=== PATIENT | male | born 1965 | race Caucasian/White ===

== ENCOUNTER 2017-05-25 10:50 | Emergency (ER) | payer OTHER ==
[2017-05-25] MEDS ORDERED: HYDROcodone/APAP 5-325MG 1 EACH TAB PO STA (11:14)
[2017-05-25] MEDS ORDERED: IBUPROFEN 800 MG TAB PO STA (11:15)
[2017-05-25 12:02] VITALS: TEMP 98.2
--- NOTE | 2017-05-25 12:08 | ED ---
General Adult HPI - General Chief complaint: Extremity Problem,Nontraumatic Stated complaint: leg pain Time Seen by Provider: 05/25/17 11:03 Source: patient, RN notes reviewed, old records reviewed Mode of arrival: wheelchair Limitations: no limitations - History of Present Illness Initial comments: This is a 51-year-old male the ER for evaluation. Patient presents today for evaluation of leg pain bilateral lower extremity pain. Patient denies any significant medical history. Takes no medications. Does admit to drinking a few beers last night. Patient was walking home from his bicycle this morning and was having some pain in his legs. He is complaining of still having pain in both legs. Both thighs both calves. Patient states pain is worse when he standing on his legs, no significant nothing seems to make them better, they're not better with rest. 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 No chest pain or shortness of breath. No recent travel history or sick contacts. Severity scale (1-10): 8 - Related Data Home Medications Medication Instructions Recorded Confirmed Cetirizine HCl [Zyrtec] 10 mg PO DAILY 05/25/17 05/25/17 predniSONE See Taper PO DIRECTED 05/25/17 05/25/17 Allergies Allergy/AdvReac Type Severity Reaction Status Date / Time No Known Allergies Allergy Verified 05/25/17 11:21 Review of Systems ROS Statement: Those systems with pertinent positive or pertinent negative responses have been documented in the HPI. ROS Other: All systems not noted in ROS Statement are negative. Past Medical History Past Medical History: No Reported History Additional Past Medical History / Comment(s): wpw History of Any Multi-Drug Resistant Organisms: None Reported Past Surgical History: No Surgical Hx Reported Past Psychological History: No Psychological Hx Reported Smoking Status: Current every day smoker Past Alcohol Use History: Occasional Past Drug Use History: None Reported General Exam Limitations: no limitations General appearance: alert, in no apparent distress Head exam: Present: atraumatic, normocephalic, normal inspection Eye exam: Present: normal appearance, PERRL, EOMI. Absent: scleral icterus, conjunctival injection, periorbital swelling ENT exam: Present: normal exam, mucous membranes moist Neck exam: Present: normal inspection. Absent: tenderness, meningismus, lymphadenopathy Respiratory exam: Present: normal lung sounds bilaterally. Absent: respiratory distress, wheezes, rales, rhonchi, stridor Cardiovascular Exam: Present: regular rate, normal rhythm, normal heart sounds. Absent: systolic murmur, diastolic murmur, rubs, gallop, clicks GI/Abdominal exam: Present: soft, normal bowel sounds. Absent: distended, tenderness, guarding, rebound, rigid Extremities exam: Present: normal inspection, full ROM, normal capillary refill , other (Positive dorsalis pedis and popliteal pulses bilaterally 2+). Absent: tenderness, pedal edema, joint swelling, calf tenderness Back exam: Present: normal inspection Neurological exam: Present: alert, oriented X3, CN II-XII intact Psychiatric exam: Present: normal affect, normal mood Skin exam: Present: warm, dry, intact, normal color. Absent: rash Course Vital Signs 05/25/17 05/25/17 10:54 12:00 Temperature 97.8 F 98.2 F Pulse Rate 93 Pulse Rate [ 67 Right Pulse Oximetery] Respiratory 20 18 Rate Blood Pressure 115/64 Blood Pressure 117/73 [Left Arm] Blood Pressure 136/69 [Left Calf] Blood Pressure 119/71 [Right Arm] Blood Pressure 147/81 [Right Calf] O2 Sat by Pulse 99 97 Oximetry - Reevaluation(s) Reevaluation #1: 05/25/17 12:07 ARASH right arm 119/71 , right calf 147/81 Left arm 117/73 , left 136/69 Medical Decision Making - Medical Decision Making 48 female here for evaluation of leg pain, nonspecific K with no evidence of vascular injury, pain to suggest DVT pain is bilateral, worse with ambulation but not better with rest, no evidence of claudication. Patient just nonspecific leg pain, will discharge home Disposition Clinical Impression: Bilateral leg pain Disposition: HOME SELF-CARE Condition: Good Instructions: Leg Pain (ED) Referrals: Arturo Harris MD [Primary Care Provider] - 1-2 days
[2017-05-25 12:38] VITALS: BP 147/81; PULSE 86; RESP 16
== END 2017-05-25 12:37 | disposition home or self-care (01) ==
LOC: EC 10:50
DX: M79.662 Pain in left lower leg (principal); M79.661 Pain in right lower leg; F17.200 Nicotine dependence, unspecified, uncomplicated; Z79.51 Long term (current) use of inhaled steroids; Z79.899 Other long term (current) drug therapy
CPT/HCPCS: 99284

== ENCOUNTER 2017-08-27 13:49 | Emergency (ER) | payer OTHER ==
[2017-08-27 13:54] VITALS: BP 125/81; PULSE 104; RESP 18; TEMP 97.4
[2017-08-27] MEDS ORDERED: CEPHALEXIN 500 MG CAP PO STA (14:20)
[2017-08-27] MEDS ORDERED: KETOROLAC 30 MG/ML 1 ML VIAL IM STA (14:20)
--- NOTE | 2017-08-27 14:28 | ED ---
Extremity Problem HPI - General Chief complaint: Extremity Problem,Nontraumatic Stated complaint: Ear and Leg Pain Time Seen by Provider: 08/27/17 14:03 Source: patient Mode of arrival: ambulatory Limitations: no limitations - History of Present Illness Initial comments: Patient is a 51-year-old male who presents with a chief complaint of ear pain and leg pain. Patient states that the symptoms have been going on for about 3 days. Patient states that he thinks he was bit by a bug. When asked, the patient states that he does have fleas in his house as he has for animals in the house. Patient states that his ear was the first symptom. He states that 3 days ago is here with swollen and red, but since it has been much improved. Today the patient is most concerned about an area of erythema on his left anterior leg. The patient again states that he thinks he was bit by a bug. Patient does not have any prior history of skin infections. She cannot identify what bug he was bit by. Patient characterizes his pain as burning and pressure. Aggravating factors are standing, there are no alleviating factors. The patient has not tried taking any medications at home. MD Complaint: extremity pain Onset/Timin -: days(s) Location: left History of Same: No Quality: burning Consistency: constant Improves with: nothing Worsens with: weight bearing Associated Symptoms: denies other symptoms - Related Data Home Medications Medication Instructions Recorded Confirmed Cetirizine HCl [Zyrtec] 10 mg PO DAILY 05/25/17 05/25/17 predniSONE See Taper PO DIRECTED 05/25/17 05/25/17 Previous Rx's Medication Instructions Recorded HYDROcodone/APAP 5-325MG [[place] 1 tab PO Q6HR PRN #30 tab 05/25/17 5-325] Cephalexin [Keflex] 500 mg PO Q6HR #27 cap 08/27/17 Allergies Allergy/AdvReac Type Severity Reaction Status Date / Time No Known Allergies Allergy Verified 08/27/17 13:54 Review of Systems ROS Statement: Those systems with pertinent positive or pertinent negative responses have been documented in the HPI. ROS Other: All systems not noted in ROS Statement are negative. Constitutional: Denies: fever, chills Eyes: Denies: vision change ENT: Reports: ear pain (Outter ear) Respiratory: Denies: cough, dyspnea Cardiovascular: Denies: chest pain Endocrine: Denies: fatigue Gastrointestinal: Denies: nausea, vomiting Genitourinary: Denies: dysuria Musculoskeletal: Denies: back pain Skin: Reports: lesions Past Medical History Past Medical History: No Reported History Additional Past Medical History / Comment(s): wpw History of Any Multi-Drug Resistant Organisms: None Reported Past Surgical History: No Surgical Hx Reported Past Psychological History: No Psychological Hx Reported Smoking Status: Current every day smoker Past Alcohol Use History: Occasional Past Drug Use History: Marijuana General Exam Limitations: no limitations General appearance: alert, in no apparent distress Head exam: Present: atraumatic, normocephalic Eye exam: Present: PERRL ENT exam: Present: TM's normal bilaterally, other (Patient has tenderness to palpation of the left pinna) Neck exam: Present: normal inspection Respiratory exam: Present: normal lung sounds bilaterally Cardiovascular Exam: Present: regular rate, normal rhythm, normal heart sounds GI/Abdominal exam: Present: soft. Absent: distended, tenderness Rectal exam: Present: deferred Extremities exam: Present: other (Patient has a 3" x 3" area of erythema and warmth over his left middle tibia. The area is not circumferential. There is no drainage noted) Back exam: Present: normal inspection Neurological exam: Present: alert, oriented X3, CN II-XII intact, normal gait Psychiatric exam: Present: normal affect, normal mood Skin exam: Present: warm, dry, intact, other (Refer to extremity exam for detail of skin lesion.) Course Vital Signs 08/27/17 13:52 Temperature 97.4 F L Pulse Rate 104 H Respiratory 18 Rate Blood Pressure 125/81 O2 Sat by Pulse 98 Oximetry Medical Decision Making - Medical Decision Making Patient presents with a chief complaint of ear pain and cellulitis of the left lower extremity. History and physical examination are consistent with localized cellulitis. Examination of the ears unremarkable though the patient is concerned for having bugs in his house. Etiologies for his leg and ear are likely the same. Patient will benefit from a course of oral antibiotics. She was counseled on the necessity for an security clerk to make sure that there are no bug infestation's in his house. Further he was counseled on getting his pets treated for fleas. I discussed smoking cessation with the patient. At this time, the patient is agreeable to current care plan. I will jan the affected cellulitic area with a marker, the patient was instructed to return to the emergency Department if the area of cellulitis spreads. Patient was encouraged to follow up with primary care in 5 days, or to return to the emergency department if symptoms worsen or change in anyway. At this time, all questions are answered as best my ability. Patient is stable for discharge. Disposition Clinical Impression: Cellulitis, Tobacco abuse counseling Disposition: HOME SELF-CARE Condition: Good Instructions: Cellulitis (ED) Referrals: Arturo Harris MD [Primary Care Provider] - 1-2 days
== END 2017-08-27 14:45 | disposition home or self-care (01) ==
LOC: EC 13:49
DX: L03.116 Cellulitis of left lower limb (principal); H92.02 Otalgia, left ear; Z71.6 Tobacco abuse counseling; F17.200 Nicotine dependence, unspecified, uncomplicated; Z79.899 Other long term (current) drug therapy
CPT/HCPCS: 99283; 96372; J1885

== ENCOUNTER 2021-10-02 04:50 | Emergency (ER) | payer OTHER ==
[2021-10-02 04:57] VITALS: TEMP 97.9
[2021-10-02] MEDS ORDERED: SODIUM CHLORIDE 0.9% 500 ML 500 ML IV STA (05:08)
[2021-10-02 05:31] LABS: Basophils % (A) 1 %; Eosinophils # (A) 0.1 k/uL (0-0.7); Eosinophils % (A) 2 %; HCT 44.9 % (39.0-53.0); HGB 15.3 gm/dL (13.0-17.5); Lymphocytes # (A) 2.3 k/uL (1.0-4.8); Lymphocytes % (A) 30 %; MCH 30.7 pg (25.0-35.0); MCV 90.5 fL (80.0-100.0); Mean Platelet Volume 8.4; Monocytes # (A) 0.3 k/uL (0-1.0); Monocytes % (A) 4 %; Neutrophils # (A) 4.7 k/uL (1.3-7.7); Neutrophils % (A) 62 %; Platelet Count 182 k/uL (150-450); RBC 4.96 m/uL (4.30-5.90); RDW 12.4 % (11.5-15.5); WBC 7.6 k/uL (3.8-10.6)
--- NOTE | 2021-10-02 05:56 | ED ---
Dizziness HPI - General Chief Complaint: Dizziness Stated Complaint: Anxiety Time Seen by Provider: 10/02/21 04:53 Source: patient, RN notes reviewed, old records reviewed Mode of arrival: ambulatory Limitations: no limitations - History of Present Illness Initial Comments: This is a 48-year-old male to the emergency department today. Patient presents today for evaluation of severe dizziness lightheadedness and episodes of near- syncope. Patient states his heart rate currently goes from episodes of being very low episodes of being very high. He knows he has a history of WPW but is not taking medications for a few years. Patient denies any drug or alcohol abuse, no recent nausea vomiting or diarrhea. Patient states aside from the dizziness and palpitations he has no chest pain during these events. No current shortness of breath. MD Complaint: dizziness, lightheadedness -: days(s) Timing: gradual onset Description: lightheadedness, near-syncope History of Same: Yes History of Trauma: No Severity: moderate Improves With: remaining still Worsens With: nothing Associated Symptoms: diaphoresis, shortness of breath (Occasional) - Related Data Previous Rx's Medication Instructions Recorded Cephalexin [Keflex] 500 mg PO Q6HR #27 cap 08/27/17 Allergies Allergy/AdvReac Type Severity Reaction Status Date / Time No Known Allergies Allergy Verified 10/02/21 04:57 Review of Systems ROS Statement: Those systems with pertinent positive or pertinent negative responses have been documented in the HPI. ROS Other: All systems not noted in ROS Statement are negative. Past Medical History Past Medical History: No Reported History Additional Past Medical History / Comment(s): wpw History of Any Multi-Drug Resistant Organisms: None Reported Past Surgical History: No Surgical Hx Reported Past Psychological History: No Psychological Hx Reported Smoking Status: Current every day smoker Past Alcohol Use History: Occasional Past Drug Use History: Marijuana General Exam General appearance: alert, in no apparent distress, anxious Head exam: Present: atraumatic, normocephalic, normal inspection Eye exam: Present: normal appearance, PERRL, EOMI. Absent: scleral icterus, conjunctival injection, periorbital swelling ENT exam: Present: normal exam, mucous membranes moist Neck exam: Present: normal inspection. Absent: tenderness, meningismus, lymphadenopathy Respiratory exam: Present: normal lung sounds bilaterally. Absent: respiratory distress, wheezes, rales, rhonchi, stridor Cardiovascular Exam: Present: regular rate, normal rhythm, normal heart sounds. Absent: systolic murmur, diastolic murmur, rubs, gallop, clicks GI/Abdominal exam: Present: soft, normal bowel sounds. Absent: distended, tenderness, guarding, rebound, rigid Extremities exam: Present: normal inspection, full ROM, normal capillary refill. Absent: tenderness, pedal edema, joint swelling, calf tenderness Back exam: Present: normal inspection Neurological exam: Present: alert, oriented X3, CN II-XII intact Psychiatric exam: Present: normal affect, normal mood Skin exam: Present: warm, dry, intact, normal color. 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 ] Respiratory 18 18 16 Rate Blood Pressure 103/58 95/76 119/83 O2 Sat by Pulse 98 97 98 Oximetry 10/02/21 10/02/21 10/02/21 06:00 07:00 07:15 Temperature Pulse Rate 77 70 Pulse Rate [ 50 L Orchestra Teacher ] Respiratory 16 18 Rate Blood Pressure 117/75 127/79 O2 Sat by Pulse 96 98 Oximetry - Reevaluation(s) Reevaluation #1: Medical record is reviewed Patient symptoms are improved Patient informed results and questions answered Patient informed seeing integration developer concerning on medication would be best interest, patient refuses admission EKG Findings - EKG Comments: EKG Findings:: EKG shows sinus rhythm 92 IN 148 QRS 102 QTC 482 Medical Decision Making - Medical Decision Making 56 male with significant history of dizziness recently known history of WPW and having runs of ventricular PVCs here in the emergency department. Patient refuses admission will states he has to make it to work this morning. Patient is given procainamide here in the ER with resolution of PVCs encouraged to return to ER follow-up with primary care, integration developer as soon as possible - Lab Data Result diagrams: 10/02/21 05:22 10/02/21 05:22 Lab Results 10/02/21 10/02/21 10/02/21 Range/Units 05:22 05:22 05:22 WBC 7.6 (3.8-10.6) k/uL RBC 4.96 (4.30-5.90) m/uL Hgb 15.3 (13.0-17.5) gm/dL Hct 44.9 (39.0-53.0) % MCV 90.5 (80.0-100.0) fL MCH 30.7 (25.0-35.0) pg MCHC 34.0 (31.0-37.0) g/dL RDW 12.4 (11.5-15.5) % Plt Count 182 (150-450) k/uL MPV 8.4 Neutrophils % 62 % Lymphocytes % 30 % Monocytes % 4 % Eosinophils % 2 % Basophils % 1 % Neutrophils # 4.7 (1.3-7.7) k/uL Lymphocytes # 2.3 (1.0-4.8) k/uL Monocytes # 0.3 (0-1.0) k/uL Eosinophils # 0.1 (0-0.7) k/uL Basophils # 0.0 (0-0.2) k/uL Sodium 139 (137-145) mmol/L Potassium 4.1 (3.5-5.1) mmol/L Chloride 109 H (98-107) mmol/L Carbon Dioxide 21 L (22-30) mmol/L Anion Gap 9 mmol/L BUN 14 (9-20) mg/dL Creatinine 0.69 (0.66-1.25) mg/dL Est GFR (CKD-EPI)AfAm >90 (>60 ml/min/1.73 sqM) Est GFR (CKD-EPI)NonAf >90 (>60 ml/min/1.73 sqM) Glucose 136 H (74-99) mg/dL Calcium 9.4 (8.4-10.2) mg/dL Phosphorus 3.0 (2.5-4.5) mg/dL Magnesium 2.2 (1.6-2.3) mg/dL Total Bilirubin 0.5 (0.2-1.3) mg/dL AST 23 (17-59) U/L ALT 21 (4-49) U/L Alkaline Phosphatase 98 (38-126) U/L Troponin I <0.012 (0.000-0.034) ng/mL Total Protein 7.2 (6.3-8.2) g/dL Albumin 4.1 (3.5-5.0) g/dL Critical Care Time Critical Care Time: Yes Total Critical Care Time: 31 Disposition Clinical Impression: WPW (Syhpi-Vkesoqmbg-Xwtix syndrome), Ventricular tachycardia Disposition: Left Against Medical Advice Condition: Serious Instructions (If sedation given, give patient instructions): Yxlbb-Ddnozzxaf-Noqgs Syndrome (ED), Tachycardia (ED) Is patient prescribed a controlled substance at d/c from ED?: No Referrals: Arturo Harris MD [Primary Care Provider] - 1-2 days
[2021-10-02 05:57] LABS: ALT 21 U/L (4-49); AST 23 U/L (17-59); African American GFR (CKD) >90 (>60 ml/min/1.73 sqM); Albumin 4.1 g/dL (3.5-5.0); Alkaline Phosphatase 98 U/L (38-126); Anion Gap 9 mmol/L; Blood Urea Nitrogen 14 mg/dL (9-20); Calcium 9.4 mg/dL (8.4-10.2); Carbon Dioxide 21 mmol/L (22-30); Chloride 109 mmol/L (98-107); Glucose 136 mg/dL (74-99); Magnesium 2.2 mg/dL (1.6-2.3); Non-African American GFR(CKD) >90 (>60 ml/min/1.73 sqM); Potassium 4.1 mmol/L (3.5-5.1); Sodium 139 mmol/L (137-145); Total Bilirubin 0.5 mg/dL (0.2-1.3); Total Protein 7.2 g/dL (6.3-8.2)
[2021-10-02] MEDS ORDERED: PROCAINAMIDE 100 MG/ML 10 ML VIAL IV STA (06:21)
[2021-10-02 07:16] VITALS: BP 127/79; PULSE 70; RESP 18
== END 2021-10-02 07:16 | disposition left against medical advice (07) ==
LOC: EC 04:50
DX: I45.6 Pre-excitation syndrome (principal); I47.2 Ventricular tachycardia; F17.200 Nicotine dependence, unspecified, uncomplicated; F12.90 Cannabis use, unspecified, uncomplicated
CPT/HCPCS: 99284; 96374; 36415; 93005; 80053; 83735; 84100; 84484; 85025; J2690

== ENCOUNTER 2021-10-20 14:22 | Inpatient (IN) | payer BC, OTHER ==
[2021-10-20 16:29] LABS: Basophils # (A) 0.1 k/uL (0-0.2); Basophils % (A) 1 %; Eosinophils # (A) 0.2 k/uL (0-0.7); Eosinophils % (A) 2 %; HCT 46.1 % (39.0-53.0); HGB 15.7 gm/dL (13.0-17.5); Lymphocytes # (A) 2.3 k/uL (1.0-4.8); Lymphocytes % (A) 26 %; MCH 30.8 pg (25.0-35.0); MCHC 34.1 g/dL (31.0-37.0); MCV 90.3 fL (80.0-100.0); Mean Platelet Volume 8.4; Monocytes # (A) 0.6 k/uL (0-1.0); Monocytes % (A) 6 %; Neutrophils # (A) 5.6 k/uL (1.3-7.7); Neutrophils % (A) 63 %; Platelet Count 214 k/uL (150-450); RBC 5.11 m/uL (4.30-5.90); RDW 12.4 % (11.5-15.5); WBC 8.9 k/uL (3.8-10.6)
--- NOTE | 2021-10-20 16:34 | XR ---
EXAMINATION TYPE: XR chest 2V DATE OF EXAM: 10/20/2021 COMPARISON: Chest x-ray October 16, 2014 HISTORY: Syncope and weakness. TECHNIQUE: Frontal and lateral views of the chest are obtained. FINDINGS: There are chronic parenchymal changes bilaterally without suspicious new focal air space o pacity, pleural effusion, or pneumothorax seen. The cardiac silhouette size remains within normal li mits. New overlying loop recorder left anterior chest wall. The osseous structures are intact. IMPRESSION: Chronic changes without acute pulmonary process.
[2021-10-20 16:37] LABS: ALT 31 U/L (4-49); AST 25 U/L (17-59); African American GFR (CKD) >90 (>60 ml/min/1.73 sqM); Albumin 4.2 g/dL (3.5-5.0); Alkaline Phosphatase 149 U/L (38-126); Anion Gap 9 mmol/L; Blood Urea Nitrogen 15 mg/dL (9-20); Calcium 9.3 mg/dL (8.4-10.2); Carbon Dioxide 22 mmol/L (22-30); Chloride 108 mmol/L (98-107); Glucose 93 mg/dL (74-99); Magnesium 2.1 mg/dL (1.6-2.3); Non-African American GFR(CKD) >90 (>60 ml/min/1.73 sqM); Potassium 3.9 mmol/L (3.5-5.1); Sodium 139 mmol/L (137-145); Total Bilirubin 0.5 mg/dL (0.2-1.3); Total Protein 7.5 g/dL (6.3-8.2)
[2021-10-20 16:53] LABS: INR 0.9 (<1.2); Partial Thromboplastin Time 23.5 sec (22.0-30.0); Prothrombin Time 9.7 sec (9.0-12.0)
--- NOTE | 2021-10-20 17:57 | ED ---
General Adult HPI - General Chief complaint: Syncope Stated complaint: Heart Palpitations,LENA,lightheaded,WPW Time Seen by Provider: 10/20/21 15:25 Source: patient, RN notes reviewed, old records reviewed Mode of arrival: ambulatory Limitations: no limitations - History of Present Illness Initial comments: This is a 56-year-old male who presents emergency Department. He has a history of WPW and he's been on a monitor lately because he's been feeling his heart racing. Patient states he used to be on procainamide but he is unable to procure any recently. Cardiology called him today and told to come to the emergency department immediately. Patient states he's been having quite a bit of anxiety and occasionally his heart races and he doesn't notice anxiety or an arrhythmia from his WPW. Patient denies any chest pain shortness of breath or difficulty breathing currently. Patient denies any fever chills or cough. Patient denies any swelling is legs or calf tenderness. Patient denies any other symptoms and occasional racing heart. - Related Data Home Medications Medication Instructions Recorded Confirmed Melatonin 10 mg PO HS PRN 10/20/21 10/20/21 Allergies Allergy/AdvReac Type Severity Reaction Status Date / Time No Known Allergies Allergy Verified 10/20/21 18:30 Review of Systems ROS Statement: Those systems with pertinent positive or pertinent negative responses have been documented in the HPI. ROS Other: All systems not noted in ROS Statement are negative. Past Medical History Past Medical History: No Reported History Additional Past Medical History / Comment(s): wpw History of Any Multi-Drug Resistant Organisms: None Reported Past Surgical History: No Surgical Hx Reported Past Psychological History: No Psychological Hx Reported Smoking Status: Current every day smoker Past Alcohol Use History: Occasional Past Drug Use History: Marijuana General Exam - General Exam Comments Initial Comments: GENERAL: Patient is well-developed and well-nourished. Patient is nontoxic and well- hydrated and is in no acute distress. ENT: Neck is soft and supple. No significant lymphadenopathy is noted. Oropharynx is clear. Moist mucous membranes. Neck has full range of motion without eliciting any pain. EYES: The sclera were anicteric and conjunctiva were pink and moist. Extraocular movements were intact and pupils were equal round and reactive to light. Eyelids were unremarkable. PULMONARY: Unlabored respirations. Good breath sounds bilaterally. No audible rales rhonchi or wheezing was noted. CARDIOVASCULAR: There is a regular rate and rhythm without any murmurs gallops or rubs. ABDOMEN: Soft and nontender with normal bowel sounds. SKIN: Skin is clear with no lesions or rashes and otherwise unremarkable. NEUROLOGIC: Patient is alert and oriented x3. Cranial nerves II through XII are grossly intact. Motor and sensory are also intact. Normal speech, volume and content. Symmetrical smile. MUSCULOSKELETAL: Normal extremities with adequate strength and full range of motion. LYMPHATICS: No significant lymphadenopathy is noted PSYCHIATRIC: Normal psychiatric evaluation. N Limitations: no limitations Course Vital Signs 10/20/21 10/20/21 10/20/21 15:21 17:25 19:26 Temperature 98.2 F Pulse Rate 80 65 75 Pulse Rate [ Bilateral] Respiratory 18 16 16 Rate Blood Pressure 111/77 95/70 116/90 Blood Pressure [Left Arm] O2 Sat by Pulse 98 98 97 Oximetry 10/20/21 10/20/21 20:54 21:12 Temperature Pulse Rate Pulse Rate [ 87 87 Bilateral] Respiratory 17 17 Rate Blood Pressure Blood Pressure 110/88 113/65 [Left Arm] O2 Sat by Pulse 97 97 Oximetry Medical Decision Making - Medical Decision Making EKG shows sinus rhythm with an occasional PAC at 72 bpm [place] interval is on a 54 104 Q-T Intervals 42 QTC Is 440. I spoke with Dr. Coyne and told him the patient's history and he wanted the patient admitted to the hospitalist well Dr. Sykes was contacted he agreed to admit the patient admitted the patient wrote admitting orders I consult to cardiology. Patient had been admitted for quite a while when all of a sudden his heart rate went over 200 EKG was done and showed that he was in a wide complex tachycardia 207 QRS is 188 QT interval 300 QTC is 557. Patient stated he could feel his heart racing but his blood pressure was good and he did not feel as though he might pass out. This point time I started the patient on amiodarone started with bolus of 150 and then started him on a drip and had a vasovagal and he converted into a sinus rhythm and stayed out of the wide complex tachycardia. Second EKG showed sinus rhythm with occasional PVC at 80 bpm [place] interval is 148 QRS is under 10 QT interval 346 QTC is 418. Patient's EKG shows no ST segment elevation - Lab Data Result diagrams: 10/20/21 15:34 10/20/21 15:34 Lab Results 10/20/21 10/20/21 10/20/21 Range/Units 15:34 15:34 15:34 WBC 8.9 (3.8-10.6) k/uL RBC 5.11 (4.30-5.90) m/uL Hgb 15.7 (13.0-17.5) gm/dL Hct 46.1 (39.0-53.0) % MCV 90.3 (80.0-100.0) fL MCH 30.8 (25.0-35.0) pg MCHC 34.1 (31.0-37.0) g/dL RDW 12.4 (11.5-15.5) % Plt Count 214 (150-450) k/uL MPV 8.4 Neutrophils % 63 % Lymphocytes % 26 % Monocytes % 6 % Eosinophils % 2 % Basophils % 1 % Neutrophils # 5.6 (1.3-7.7) k/uL Lymphocytes # 2.3 (1.0-4.8) k/uL Monocytes # 0.6 (0-1.0) k/uL Eosinophils # 0.2 (0-0.7) k/uL Basophils # 0.1 (0-0.2) k/uL PT 9.7 (9.0-12.0) sec INR 0.9 (<1.2) APTT 23.5 (22.0-30.0) sec Sodium 139 (137-145) mmol/L Potassium 3.9 (3.5-5.1) mmol/L Chloride 108 H (98-107) mmol/L Carbon Dioxide 22 (22-30) mmol/L Anion Gap 9 mmol/L BUN 15 (9-20) mg/dL Creatinine 0.81 (0.66-1.25) mg/dL Est GFR (CKD-EPI)AfAm >90 (>60 ml/min/1.73 sqM) Est GFR (CKD-EPI)NonAf >90 (>60 ml/min/1.73 sqM) Glucose 93 (74-99) mg/dL Calcium 9.3 (8.4-10.2) mg/dL Magnesium 2.1 (1.6-2.3) mg/dL Total Bilirubin 0.5 (0.2-1.3) mg/dL AST 25 (17-59) U/L ALT 31 (4-49) U/L Alkaline Phosphatase 149 H (38-126) U/L Troponin I (0.000-0.034) ng/mL Total Protein 7.5 (6.3-8.2) g/dL Albumin 4.2 (3.5-5.0) g/dL 10/20/21 Range/Units 15:34 WBC (3.8-10.6) k/uL RBC (4.30-5.90) m/uL Hgb (13.0-17.5) gm/dL Hct (39.0-53.0) % MCV (80.0-100.0) fL MCH (25.0-35.0) pg MCHC (31.0-37.0) g/dL RDW (11.5-15.5) % Plt Count (150-450) k/uL MPV Neutrophils % % Lymphocytes % % Monocytes % % Eosinophils % % Basophils % % Neutrophils # (1.3-7.7) k/uL Lymphocytes # (1.0-4.8) k/uL Monocytes # (0-1.0) k/uL Eosinophils # (0-0.7) k/uL Basophils # (0-0.2) k/uL PT (9.0-12.0) sec INR (<1.2) APTT (22.0-30.0) sec Sodium (137-145) mmol/L Potassium (3.5-5.1) mmol/L Chloride (98-107) mmol/L Carbon Dioxide (22-30) mmol/L Anion Gap mmol/L BUN (9-20) mg/dL Creatinine (0.66-1.25) mg/dL Est GFR (CKD-EPI)AfAm (>60 ml/min/1.73 sqM) Est GFR (CKD-EPI)NonAf (>60 ml/min/1.73 sqM) Glucose (74-99) mg/dL Calcium (8.4-10.2) mg/dL Magnesium (1.6-2.3) mg/dL Total Bilirubin (0.2-1.3) mg/dL AST (17-59) U/L ALT (4-49) U/L Alkaline Phosphatase (38-126) U/L Troponin I <0.012 (0.000-0.034) ng/mL Total Protein (6.3-8.2) g/dL Albumin (3.5-5.0) g/dL Critical Care Time Critical Care Time: Yes Total Critical Care Time: 35 Disposition Clinical Impression: History of Hjdog-Cnjachlue-Tnxpj (WPW) syndrome, Wide-complex tachycardia Disposition: [facility] Time of Disposition: 17:57
[2021-10-20] MEDS ORDERED: AMIODARONE IN DEXTROSE,ISO-OSM 360 MG/200 ML PLAST..BAG IV ONE (18:00)
[2021-10-20] MEDS ORDERED: AMIODARONE IN DEXTROSE,ISO-OSM 150 MG/100 ML PLAST..BAG IV ONE (18:00)
[2021-10-20] MEDS ORDERED: AMIODARONE 360 MG in DEXTROSE 5% IN WATER 200 ML IV ONE ×4 (20:52→21:10)
[2021-10-20] MEDS ORDERED: DEXTROSE 5% IN WATER 100 ML with AMIODARONE 150 MG IV ONE (21:00)
[2021-10-21 01:34] LABS: African American GFR (CKD) >90 (>60 ml/min/1.73 sqM); Anion Gap 7 mmol/L; Blood Urea Nitrogen 16 mg/dL (9-20); Calcium 9.1 mg/dL (8.4-10.2); Carbon Dioxide 25 mmol/L (22-30); Chloride 106 mmol/L (98-107); Glucose 101 mg/dL (74-99); Magnesium 2.2 mg/dL (1.6-2.3); Non-African American GFR(CKD) >90 (>60 ml/min/1.73 sqM); Potassium 3.9 mmol/L (3.5-5.1); Sodium 138 mmol/L (137-145)
[2021-10-21] MEDS ORDERED: AMIODARONE 450 MG in DEXTROSE 5% IN WATER 250 ML IV SCH ×2 (03:00)
--- NOTE | 2021-10-21 08:27 | P.HPIM ---
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 This time he felt dizzy for 10 seconds before he fell on the floor for a few seconds with no post syncope confusion. He denies chest pain or dyspnea or coughing. No diarrhea. No urinary complaints. No fever He smokes about 1 pack per day and he was consulted with and he agrees to the nicotine patch. No alcohol or illicit drugs On admission his heart rate was 70s to 80s. Systolic blood pressure 90s to 100. Afebrile. Labs reviewed including unremarkable CBC, INR, BMP, liver enzymes. Less than 0.012. coronavirus: Not detected Chest x-ray: No acute process EKG showing normal sinus rhythm at 72 with PAC. EKG showing normal sinus rhythm at 88 with PVCs and incomplete right bundle branch block. Third EKG showing wide QRS tachycardia at 207 with left bundle branch block patient was started on amiodarone drip in the emergency room Cardiology team consulted Past Medical History Past Medical History: No Reported History Additional Past Medical History / Comment(s): wpw History of Any Multi-Drug Resistant Organisms: None Reported Past Surgical History: No Surgical Hx Reported Past Psychological History: No Psychological Hx Reported Smoking Status: Current every day smoker Past Alcohol Use History: Occasional Past Drug Use History: Marijuana Medications and Allergies Home Medications Medication Instructions Recorded Confirmed Type Melatonin 10 mg PO HS PRN 10/20/21 10/20/21 History Allergies Allergy/AdvReac Type Severity Reaction Status Date / Time No Known Allergies Allergy Verified 10/20/21 18:30 Physical Exam Vitals: Vital Signs Temp Pulse Pulse Resp BP BP Pulse Ox 10/21/21 04:05 98.3 F 66 18 120/86 96 10/20/21 22:30 72 14 104/61 96 10/20/21 22:20 89 18 99/61 95 10/20/21 22:10 78 12 103/63 96 10/20/21 22:00 82 29 H 98/56 95 10/20/21 21:50 85 37 H 97/54 96 10/20/21 21:40 83 122/73 96 10/20/21 21:30 75 7 L 115/70 97 10/20/21 21:20 82 12 113/65 95 10/20/21 21:12 87 17 113/65 97 10/20/21 21:10 81 7 L 120/103 98 10/20/21 21:00 92 110/88 98 10/20/21 20:54 87 17 110/88 97 10/20/21 20:30 87 10 L 106/64 96 10/20/21 20:00 80 10 L 124/61 95 10/20/21 19:30 200 H 23 116/90 93 L 10/20/21 19:26 75 16 116/90 97 10/20/21 19:10 75 8 L 110/77 96 10/20/21 19:00 77 11 L 107/56 97 10/20/21 18:54 98.4 F 84 18 112/75 95 10/20/21 18:10 80 18 109/65 98 10/20/21 17:30 81 10 L 95/70 99 10/20/21 17:25 65 16 95/70 98 10/20/21 17:20 81 10 L 127/88 95 10/20/21 15:21 98.2 F 80 18 111/77 98 Intake and Output 10/20/21 10/21/21 10/21/21 22:59 06:59 14:59 Other: # Voids 2 Weight 79.379 kg 74.1 kg Results CBC & Chem 7: 10/20/21 15:34 10/21/21 01:10 Labs: Abnormal Lab Results - Last 24 Hours (Table) 10/20/21 10/21/21 Range/Units 15:34 01:10 Chloride 108 H (98-107) mmol/L Glucose 101 H (74-99) mg/dL Alkaline Phosphatase 149 H (38-126) U/L Thrombosis Risk Factor Assmnt - Choose All That Apply Any of the Below Risk Factors Present?: Yes Each Factor Represents 1 point: Obesity (BMI >25) Other Risk Factors: No Other congenital or acquired thrombophilia - If yes, enter type in comment: No Thrombosis Risk Factor Assessment Total Risk Factor Score: 1 Thrombosis Risk Factor Assessment Level: Low Risk Assessment and Plan Assessment: Wide complex tachycardia, suspicious for V. tach History of mtut-Brmxltcwm-Enbxb syndrome Nicotine dependence Plan: This is a pleasant 56 years old male who presents with wide complex tachycardia Currently he is on amiodarone drip Cardiology consult Nicotine patch Labs and medication were reviewed.. Continue same treatment. Continue with symptomatic treatment. Resume home medication. Monitor lytes and vitals. DVT and GI prophylaxis. Further recommendations depends on the clinical course of the patient DVT prophylaxis: Subcutaneous heparin GI Prophylaxis: Pepcid PT/OT: Pending Prognosis is guarded
[2021-10-21] MEDS: NICOTINE 21MG/24HR PATCH TRANSDERM SCH (08:57)
[2021-10-21] MEDS: HEPARIN SODIUM,PORCINE/PF 5,000 UNIT/0.5 ML SYRINGE SQ SCH ×2 (08:57→20:27)
[2021-10-21] MEDS: FAMOTIDINE 20 MG/2 ML VIAL IV SCH ×2 (08:58→20:27)
[2021-10-21] MEDS ORDERED: ALPRAZolam 0.5 MG TAB PO PRN (10:20)
[2021-10-21] MEDS ORDERED: NITROGLYCERIN SL TABS 0.4 MG TAB SUBLINGUAL PRN (10:20)
[2021-10-21] MEDS ORDERED: ALPRAZolam 0.25 MG TAB PO PRN (10:20)
[2021-10-21] MEDS: DILTIAZEM 125 MG in SODIUM CHLORIDE 0.9% 100 ML IV SCH (11:01)
--- NOTE | 2021-10-21 12:25 | P.CRDCN ---
History of Present Illness History of present illness: HISTORY OF PRESENTING ILLNESS This is a pleasant 56-year-old male past medical history significant for chronic nicotine dependence, diagnosis of WPW 15 years ago. He follows in the office [facility] Dr. Salazar. We have been asked to see in consultation for tachycardia. Patient presents emergency department with constant palpitations. He states the palpitations started yesterday and continued the entire day. Patient seen in the office 10/11/[address] Walker for evaluation, a 30 day event monitor was placed. Patient was called yesterday to come to the ER due to his event monitor concern for ventricular tachycardia. Patient denies any chest pain, shortness of breath. He did have some mild lightheadedness. He denies any syncope or presyncope, he denies loss of consciousness. Denies symptoms of orthopnea or PND. EKG on admission revealed ventricular tachycardia HR 207. Patient was started on amiodarone bolus and an amiodarone drip. Repeat EKG revealed sinus rhythm with PVCs, T wave inversion in leads aVL and V2. DIAGNOSTICS Echocardiogram in the office 10/09/2021 revealed EF 55%, trace mitral regurgitation, trace tricuspid regurgitation Telemetry tracings indicate sinus mechanism heart rate 60s to 70s. PVCs No further evidence of ventricular tachycardia overnight Chest xray no acute cardiopulmonary process. Laboratory reviewed, CBC unremarkable, sodium 138, potassium 3.9, BUN 16, serum creatinine 0.8, TSH 4.7, free T4 pending Current home medications include PRN melatonin REVIEW OF SYSTEMS At the time of my exam: CONSTITUTIONAL: Denies fever or chills. CARDIOVASCULAR: Reports palpitations Denies chest pain, shortness of breath, orthopnea, PND RESPIRATORY: Denies cough. GASTROINTESTINAL: Denies abdominal pain, diarrhea, constipation, nausea or vomiting. MUSCULOSKELETAL: Denies myalgias. NEUROLOGIC: Denies numbness, tingling, headacbe or weakness. ENDOCRINE: Denies fatigue, weight change, polydipsia or polyurina. GENITOURINARY: Denies burning, hematuria or urgency with micturation. HEMATOLOGIC: Denies history of anemia or bleeding. PHYSICAL EXAMINATION Blood pressure 121/72, heart rate 67, afebrile, oxygen saturation is greater than 92% on room air CONSTITUTIONAL: No apparent distress. HEENT: Head is normocephalic. Pupils are equal, round. Sclerae anicteric. Mucous membranes of the mouth are moist. No JVD. No carotid bruit. CHEST EXAMINATION: Lungs are clear to auscultation. No chest wall tenderness is noted on palpation or with deep breathing. HEART EXAMINATION: Regular rate and rhythm. S1, S2 heard. No murmurs, gallops or rub. ABDOMEN: Soft, nontender. Positive bowel sounds. EXTREMITIES: 2+ peripheral pulses, no lower extremity edema and no calf tenderness. NEUROLOGIC EXAMINATION: Patient is awake, alert and oriented x3. ASSESSMENT Wide complex tachycardia Ventricular tachycardia Palpitations History of WPW Chronic nicotine dependence History of syncope History of PVCs followed by palpitations in the past PLAN -Stop amiodarone, please do not put patient on amiodarone at this time' -Start Cardizem 5mg/hr -Continue cardiac telemetry -Plan for left cardiac catheterization tomorrow 10/22/[address] Salazar. -Plan for EP Study with Dr. Walker Wednesday -I have discussed the risks, benefits and alternative therapies for the above- mentioned procedures and for both sedation/analgesia as well as necessary blood product administration, if indicated, as they pertain to this patient. The patient has indicated understanding and acceptance of the risks and procedures discussed. Questions have been answered appropriately and he is agreeable to move forward with the above-stated procedure. -Further recommendations based on clinical course Nurse Practitioner note has been reviewed, I agree with a documented findings and plan of care. Patient was seen and examined. Past Medical History Past Medical History: No Reported History Additional Past Medical History / Comment(s): wpw History of Any Multi-Drug Resistant Organisms: None Reported Past Surgical History: No Surgical Hx Reported Past Psychological History: No Psychological Hx Reported Smoking Status: Current every day smoker Past Alcohol Use History: Occasional Past Drug Use History: Marijuana Medications and Allergies Home Medications Medication Instructions Recorded Confirmed Type Melatonin 10 mg PO HS PRN 10/20/21 10/20/21 History Allergies Allergy/AdvReac Type Severity Reaction Status Date / Time No Known Allergies Allergy Verified 10/20/21 18:30 Physical Exam Vitals: Vital Signs Temp Pulse Pulse Resp BP BP Pulse Ox 10/21/21 04:05 98.3 F 66 18 120/86 96 10/20/21 22:30 72 14 104/61 96 10/20/21 22:20 89 18 99/61 95 10/20/21 22:10 78 12 103/63 96 10/20/21 22:00 82 29 H 98/56 95 10/20/21 21:50 85 37 H 97/54 96 10/20/21 21:40 83 122/73 96 10/20/21 21:30 75 7 L 115/70 97 10/20/21 21:20 82 12 113/65 95 10/20/21 21:12 87 17 113/65 97 10/20/21 21:10 81 7 L 120/103 98 10/20/21 21:00 92 110/88 98 10/20/21 20:54 87 17 110/88 97 10/20/21 20:30 87 10 L 106/64 96 10/20/21 20:00 80 10 L 124/61 95 10/20/21 19:30 200 H 23 116/90 93 L 10/20/21 19:26 75 16 116/90 97 10/20/21 19:10 75 8 L 110/77 96 10/20/21 19:00 77 11 L 107/56 97 10/20/21 18:54 98.4 F 84 18 112/75 95 10/20/21 18:10 80 18 109/65 98 10/20/21 17:30 81 10 L 95/70 99 10/20/21 17:25 65 16 95/70 98 10/20/21 17:20 81 10 L 127/88 95 10/20/21 15:21 98.2 F 80 18 111/77 98 Intake and Output 10/20/21 10/21/21 10/21/21 22:59 06:59 14:59 Other: # Voids 2 Weight 79.379 kg 74.1 kg Results 10/20/21 15:34 10/21/21 01:10 Cardiac Enzymes 10/20/21 10/20/21 Range/Units 15:34 15:34 AST 25 (17-59) U/L Troponin I <0.012 (0.000-0.034) ng/mL Coagulation 10/20/21 Range/Units 15:34 PT 9.7 (9.0-12.0) sec APTT 23.5 (22.0-30.0) sec CBC 10/20/21 Range/Units 15:34 WBC 8.9 (3.8-10.6) k/uL RBC 5.11 (4.30-5.90) m/uL Hgb 15.7 (13.0-17.5) gm/dL Hct 46.1 (39.0-53.0) % Plt Count 214 (150-450) k/uL Comprehensive Metabolic Panel 10/20/21 10/21/21 Range/Units 15:34 01:10 Sodium 139 138 (137-145) mmol/L Potassium 3.9 3.9 (3.5-5.1) mmol/L Chloride 108 H 106 (98-107) mmol/L Carbon Dioxide 22 25 (22-30) mmol/L BUN 15 16 (9-20) mg/dL Creatinine 0.81 0.84 (0.66-1.25) mg/dL Glucose 93 101 H (74-99) mg/dL Calcium 9.3 9.1 (8.4-10.2) mg/dL AST 25 (17-59) U/L ALT 31 (4-49) U/L Alkaline Phosphatase 149 H (38-126) U/L Total Protein 7.5 (6.3-8.2) g/dL Albumin 4.2 (3.5-5.0) g/dL Current Medications Generic Name Dose Route Start Last Admin Trade Name Freq PRN Reason Stop Dose Admin Famotidine 20 mg 10/21/21 09:00 Famotidine 20 Mg/2 Ml Vial IV Q12HR [facility] Heparin Sodium (Porcine) 5,000 unit 10/21/21 09:00 Heparin Sodium,Porcine/Pf 5,000 Unit/0.5 Ml Syringe SQ Q12HR [facility] Amiodarone HCl 450 mg/ 250 mls @ 16.667 mls/hr 10/21/21 03:00 10/21/21 03:34 Dextrose/Water IV 10/21/21 20:59 0.5 mg/min .Q15H [facility] 16.667 mls/hr Administration Protocol 0.5 MG/MIN Intake and Output 10/20/21 10/21/21 10/21/21 22:59 06:59 14:59 Other: # Voids 2 Weight 79.379 kg 74.1 kg 10/20/21 15:34 10/21/21 01:10
[2021-10-21] MEDS: SODIUM CHLORIDE 0.9% 1,000 ML in EMPTY BAG 1 BAG IV SCH (17:54)
[2021-10-22] MEDS: SODIUM CHLORIDE 0.9% 1,000 ML in EMPTY BAG 1 BAG IV SCH ×2 (05:01→22:48)
[2021-10-22] MEDS: NICOTINE 21MG/24HR PATCH TRANSDERM SCH (05:54)
[2021-10-22] MEDS: FAMOTIDINE 20 MG/2 ML VIAL IV SCH ×2 (05:54→21:26)
[2021-10-22] MEDS: HEPARIN SODIUM,PORCINE/PF 5,000 UNIT/0.5 ML SYRINGE SQ SCH ×2 (05:55→21:26)
[2021-10-22] MEDS ORDERED: ASPIRIN 325 MG TAB PO ONE (07:00)
[2021-10-22] MEDS ORDERED: HEPARIN SODIUM,PORCINE 10,000 UNIT in SODIUM CHLORIDE 0.9% 1,000 ML IRRIGATION PRN (07:00)
[2021-10-22] MEDS ORDERED: ATORVASTATIN 80 MG TAB PO ONE (07:00)
[2021-10-22] MEDS ORDERED: HEPARIN SODIUM,PORCINE 2,500 UNIT in SODIUM CHLORIDE 0.9% 250 ML IRRIGATION PRN (07:00)
[2021-10-22] MEDS ORDERED: HEPARIN SODIUM 1,000 UN/ML (10ML VL) ONE (07:22)
[2021-10-22] MEDS ORDERED: IV FLUID CONTINUATION 1,000 ML IV ONE (07:22)
[2021-10-22] MEDS ORDERED: MIDAZOLAM 2 MG/2 ML VIAL IV ONE (07:42)
[2021-10-22] MEDS: .fentaNYL (PF) 50 MCG/ML 2 ML AMP IV ONE ×2 (07:42→07:57)
[2021-10-22] MEDS ORDERED: LIDOCAINE 1% INJ 10MG/ML (20 ML MDV) SQ ONE (07:43)
[2021-10-22] MEDS ORDERED: VERAPAMIL SYRINGE (5 MG/10 ML) INTRAARTER ONE (07:45)
[2021-10-22] MEDS ORDERED: HEPARIN SODIUM 1,000 UN/ML (10ML VL) IV ONE (07:46)
[2021-10-22] MEDS ORDERED: IOPAMIDOL-370 125ML BTL INJ ONE (08:03)
[2021-10-22 08:06] LABS: Basophils # (A) 0.1 k/uL (0-0.2); Basophils % (A) 1 %; Eosinophils # (A) 0.1 k/uL (0-0.7); Eosinophils % (A) 2 %; HCT 41.5 % (39.0-53.0); Lymphocytes # (A) 2.1 k/uL (1.0-4.8); Lymphocytes % (A) 30 %; MCH 30.6 pg (25.0-35.0); MCHC 33.8 g/dL (31.0-37.0); MCV 90.4 fL (80.0-100.0); Mean Platelet Volume 9.1; Monocytes # (A) 0.6 k/uL (0-1.0); Monocytes % (A) 9 %; Neutrophils # (A) 3.9 k/uL (1.3-7.7); Neutrophils % (A) 57 %; Platelet Count 186 k/uL (150-450); RBC 4.59 m/uL (4.30-5.90); RDW 12.3 % (11.5-15.5); WBC 6.9 k/uL (3.8-10.6)
[2021-10-22] MEDS ORDERED: RX INFO: IV CONTRAST WAS GIVEN 1 EACH MISC MISCELLANE PRN (08:08)
[2021-10-22] MEDS: SODIUM CHLORIDE 0.9% 1,000 ML IV SCH (08:28)
[2021-10-22 08:48] LABS: African American GFR (CKD) >90 (>60 ml/min/1.73 sqM); Anion Gap 7 mmol/L; Blood Urea Nitrogen 12 mg/dL (9-20); Carbon Dioxide 22 mmol/L (22-30); Chloride 108 mmol/L (98-107); Glucose 101 mg/dL (74-99); Non-African American GFR(CKD) >90 (>60 ml/min/1.73 sqM); Potassium 3.9 mmol/L (3.5-5.1); Sodium 137 mmol/L (137-145)
--- NOTE | 2021-10-22 09:21 | CC ---
CARDIAC CATHETERIZATION REPORT INDICATION: Ventricular tachycardia. PROCEDURE NOTE: After obtaining informed consent, left heart catheterization and coronary angiogram were performed via the right radial artery using standard Abelino catheters. Patient tolerated the procedure well without any obvious immediate complications. He received 1 mg Versed and 50 mcg of fentanyl for sedation. Total sedation time was 18 minutes. The right radial artery access was obtained using modified Seldinger technique and under fluoroscopic guidance, guidewire was passed into the ascending aorta and catheters were exchanged over it. At the end of the procedure, hemostasis was obtained using a TR band using standard precautions. The pulse ox at the end of the procedure was documented at 95%. FINDINGS: HEMODYNAMICS: Left ventricular end-diastolic pressure is 14 mm. There is no significant gradient across the aortic valve. LEFT VENTRICULOGRAM: Left ventriculogram was not performed. ANGIOGRAPHIC DATA: Left main coronary artery appears mildly calcified but is free of significant stenosis. Divides into left anterior descending coronary artery and circumflex coronary artery. Circumflex coronary artery is a large dominant vessel. LAD shows mild atherosclerotic plaque in its mid portion, but there are no focal hemodynamically significant lesions. Right coronary artery is a nondominant vessel and is free of significant disease. CONCLUSION: Mild nonobstructive coronary artery disease. PLAN: Patient will undergo VT ablation on Wednesday with Dr. Walker. MMODL / IJN: [id number] /
[2021-10-22] MEDS: DILTIAZEM 125 MG in SODIUM CHLORIDE 0.9% 100 ML IV SCH (12:15)
--- NOTE | 2021-10-22 17:22 | P.PN ---
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 This time he felt dizzy for 10 seconds before he fell on the floor for a few seconds with no post syncope confusion. He denies chest pain or dyspnea or coughing. No diarrhea. No urinary complaints. No fever He smokes about 1 pack per day and he was consulted with and he agrees to the nicotine patch. No alcohol or illicit drugs On admission his heart rate was 70s to 80s. Systolic blood pressure 90s to 100. Afebrile. Labs reviewed including unremarkable CBC, INR, BMP, liver enzymes. Less than 0.012. coronavirus: Not detected Chest x-ray: No acute process EKG showing normal sinus rhythm at 72 with PAC. EKG showing normal sinus rhythm at 88 with PVCs and incomplete right bundle branch block. Third EKG showing wide QRS tachycardia at 207 with left bundle branch block patient was started on amiodarone drip in the emergency room Cardiology team consulted 10/22/2021 Patient awake with no dizziness or chest pain or other new complaints. He underwent cardiac cath today and it was nondiagnostic for any significant lesion. Patient vitals and labs are stable. He kept and Cardizem drip at 5 mg per hour with normal saline at 75 mL/h and aspirin 325 mg. Also he is on heparin and Pepcid. Cardiac team is planned for VT ablation on Wednesday Objective - Vital Signs Vital signs: Vital Signs Temp 98.2 F 10/22/21 12:00 Pulse 62 10/22/21 12:00 Resp 16 10/22/21 12:00 BP 97/55 10/22/21 12:00 Pulse Ox 96 10/22/21 12:00 Intake & Output 10/21/21 10/22/21 10/22/21 18:59 06:59 18:59 Intake Total 360 45 560 Balance 360 45 560 Weight 74.3 kg Intake: IV 10 75 Invasive Line 2 10 Intake, IV Titration 35 125 Amount Diltiazem 125 mg In 35 125 Sodium Chloride 0.9% 100 ml @ 5 MG/HR 5 mls/hr IV .Q24H [facility] Rx#:[id number] Oral 360 360 Other: # Voids 3 2 - Exam GENERAL: The patient is alert and oriented x3, not in any acute distress. Well developed, well nourished. HEENT: Pupils are round and equally reacting to light. EOMI. No scleral icterus. No conjunctival pallor. Normocephalic, atraumatic. No pharyngeal erythema. No thyromegaly. CARDIOVASCULAR: S1 and S2 present. No murmurs, rubs, or gallops. PULMONARY: Chest is clear to auscultation, no wheezing or crackles. ABDOMEN: Soft, nontender, nondistended, normoactive bowel sounds. No palpable organomegaly. MUSCULOSKELETAL: No joint swelling or deformity. EXTREMITIES: No cyanosis, clubbing, or pedal edema. NEUROLOGICAL: Gross neurological examination did not reveal any focal deficits. SKIN: No rashes. no petechiae. - Labs CBC & Chem 7: 10/22/21 06:55 10/22/21 06:55 Labs: Abnormal Lab Results - Last 24 Hours (Table) 10/22/21 Range/Units 06:55 Chloride 108 H (98-107) mmol/L Glucose 101 H (74-99) mg/dL Assessment and Plan Assessment: Wide complex tachycardia, suspicious for V. tach History of dmmi-Rsiyzjzoa-Vyqnj syndrome Nicotine dependence Plan: This is a pleasant 56 years old male who presents with wide complex tachycardia Currently he is on [facility] drip Cardiology consult who plann for VT ablation on Wednesday Normal saline Nicotine patch Labs and medication were reviewed.. Continue same treatment. Continue with symptomatic treatment. Resume home medication. Monitor lytes and vitals. DVT and GI prophylaxis. Further recommendations depends on the clinical course of the patient DVT prophylaxis: Subcutaneous heparin GI Prophylaxis: Pepcid Prognosis is guarded
[2021-10-23] MEDS: SODIUM CHLORIDE 0.9% 1,000 ML IV SCH ×3 (00:06→12:03)
[2021-10-23] MEDS: FAMOTIDINE 20 MG/2 ML VIAL IV SCH ×2 (08:49→20:36)
[2021-10-23] MEDS: HEPARIN SODIUM,PORCINE/PF 5,000 UNIT/0.5 ML SYRINGE SQ SCH ×2 (08:55→20:36)
[2021-10-23] MEDS: DILTIAZEM 125 MG in SODIUM CHLORIDE 0.9% 100 ML IV SCH (08:55)
[2021-10-23] MEDS: NICOTINE 21MG/24HR PATCH TRANSDERM SCH (08:55)
--- NOTE | 2021-10-23 10:38 | P.PN ---
Subjective Progress Note Date: 10/23/21 Principal diagnosis: Tachycardia, history of Jebmx-Fcocbbtts-Mtgnh This is Aditya mackenzie NP, dictating a progress note on behalf of Dr. Walker. Patient was interviewed and examined. Patient is a pleasant 56-year-old male who initially presented to the hospital with tachycardia. He was presumed to have Xnhgo-Jvfmuvczv-Rnfco syndrome, but actually has right ventricular outflow tract VT per EKG. Patient is currently scheduled for a ablation tomorrow morning at 11 AM. Patient is currently on a Cardizem drip at 5 per hour, this will need to be stopped tomorrow morning around 5 AM. Patient should not be started on any other rate control drugs including amiodarone. Patient should be nothing by mouth after midnight. GENERAL: Well-appearing, well-nourished and in no acute distress. NECK: Supple without JVD or thyromegaly. LUNGS: Breath sounds clear to auscultation bilaterally. Respiration equal and unlabored. No wheezes, rales or rhonchi. HEART: Regular rate and rhythm without murmurs, rubs or gallops. S1 and S2 heard. EXTREMITIES: Normal range of motion, no edema. No clubbing or cyanosis. Peripheral pulses intact and strong. VITALS: [Temp 98.0, pulse rate 61, respirations 15, blood pressure 107/66, oxygen 97% on room air] TELEMETRY: [Demonstrates PACs along with PVCs and couplets] LABS: [White count 6.9, hemoglobin 14.0, platelets 186, PT 9.7, INR 0.9, sodium 137, potassium 3.9, B1 12, creatinine 0.81, calcium 9.0, magnesium 2.1, troponin less than 0.012, TSH 4.74, free T4 1 0.34.] IMPRESSION/PLAN: [1. Right ventricular outflow tract ventricular tachycardia-patient will have ablation tomorrow morning at 11 AM. Nothing by mouth after midnight. Stop Cardizem at 5 AM. No other rate control drugs including amiodarone.] The patient has been seen and evaluated. Plan of care has been reviewed and agreed upon by Dr. Walker. Objective - Vital Signs Vital signs: Vital Signs Temp 98.0 F 10/23/21 08:54 Pulse 61 10/23/21 08:54 Resp 15 10/23/21 08:54 BP 107/66 10/23/21 08:54 Pulse Ox 97 10/23/21 08:54 Intake & Output 10/22/21 10/23/21 10/23/21 18:59 06:59 18:59 Intake Total 800 237 343.333 Balance 800 237 343.333 Intake: IV 75 Intake, IV Titration 125 103.333 Amount Diltiazem 125 mg In 125 103.333 Sodium Chloride 0.9% 100 ml @ 5 MG/HR 5 mls/hr IV .Q24H [facility] Rx#:[id number] Oral 600 237 240 Other: # Voids 3 3 - Labs CBC & Chem 7: 10/22/21 06:55 10/22/21 06:55
--- NOTE | 2021-10-23 11:51 | P.PN ---
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 This time he felt dizzy for 10 seconds before he fell on the floor for a few seconds with no post syncope confusion. He denies chest pain or dyspnea or coughing. No diarrhea. No urinary complaints. No fever He smokes about 1 pack per day and he was consulted with and he agrees to the nicotine patch. No alcohol or illicit drugs On admission his heart rate was 70s to 80s. Systolic blood pressure 90s to 100. Afebrile. Labs reviewed including unremarkable CBC, INR, BMP, liver enzymes. Less than 0.012. coronavirus: Not detected Chest x-ray: No acute process EKG showing normal sinus rhythm at 72 with PAC. EKG showing normal sinus rhythm at 88 with PVCs and incomplete right bundle branch block. Third EKG showing wide QRS tachycardia at 207 with left bundle branch block patient was started on amiodarone drip in the emergency room Cardiology team consulted 10/22/2021 Patient awake with no dizziness or chest pain or other new complaints. He underwent cardiac cath today and it was nondiagnostic for any significant lesion. Patient vitals and labs are stable. He kept and Cardizem drip at 5 mg per hour with normal saline at 75 mL/h and aspirin 325 mg. Also he is on heparin and Pepcid. Cardiac team is planned for VT ablation on Wednesday10/23/2021 Patient lying in bed, with no specific symptoms. He is going for her diabetic ablation procedure tomorrow He still have some runs of V. tach but it is asymptomatic. Rest of vitals are stable. He remains on Cardizem drip, but normal saline was used stopped. Also he is on subcu heparin Objective - Vital Signs Vital signs: Vital Signs Temp 98.0 F 10/23/21 08:54 Pulse 61 10/23/21 08:54 Resp 15 10/23/21 08:54 BP 107/66 10/23/21 08:54 Pulse Ox 97 10/23/21 08:54 Intake & Output 10/22/21 10/23/21 10/23/21 18:59 06:59 18:59 Intake Total 800 237 343.333 Balance 800 237 343.333 Intake: IV 75 Intake, IV Titration 125 103.333 Amount Diltiazem 125 mg In 125 103.333 Sodium Chloride 0.9% 100 ml @ 5 MG/HR 5 mls/hr IV .Q24H [facility] Rx#:[id number] Oral 600 237 240 Other: # Voids 3 3 - Exam GENERAL: The patient is alert and oriented x3, not in any acute distress. Well developed, well nourished. HEENT: Pupils are round and equally reacting to light. EOMI. No scleral icterus. No conjunctival pallor. Normocephalic, atraumatic. No pharyngeal erythema. No thyromegaly. CARDIOVASCULAR: S1 and S2 present. No murmurs, rubs, or gallops. PULMONARY: Chest is clear to auscultation, no wheezing or crackles. ABDOMEN: Soft, nontender, nondistended, normoactive bowel sounds. No palpable organomegaly. MUSCULOSKELETAL: No joint swelling or deformity. EXTREMITIES: No cyanosis, clubbing, or pedal edema. NEUROLOGICAL: Gross neurological examination did not reveal any focal deficits. SKIN: No rashes. no petechiae. - Labs CBC & Chem 7: 10/22/21 06:55 10/22/21 06:55 Assessment and Plan Assessment: Wide complex tachycardia, suspicious for V. tach History of pfmh-Aahjcsaxi-Cneql syndrome Nicotine dependence Plan: This is a pleasant 56 years old male who presents with wide complex tachycardia Currently he is on Cardizem drip Cardiology consult who plann for VT ablation on Wednesday Normal saline Nicotine patch Labs and medication were reviewed.. Continue same treatment. Continue with symptomatic treatment. Resume home medication. Monitor lytes and vitals. DVT and GI prophylaxis. Further recommendations depends on the clinical course of the patient DVT prophylaxis: Subcutaneous heparin GI Prophylaxis: Pepcid Prognosis is guarded
[2021-10-23] MEDS: SODIUM CHLORIDE 0.9% 1,000 ML in EMPTY BAG 1 BAG IV SCH (19:07)
[2021-10-24] MEDS: SODIUM CHLORIDE 0.9% 1,000 ML IV SCH (01:18)
[2021-10-24] MEDS: SODIUM CHLORIDE 0.9% 1,000 ML in EMPTY BAG 1 BAG IV SCH (02:59)
[2021-10-24] MEDS: NICOTINE 21MG/24HR PATCH TRANSDERM SCH (08:27)
[2021-10-24] MEDS: FAMOTIDINE 20 MG/2 ML VIAL IV SCH (08:27)
[2021-10-24] MEDS: HEPARIN SODIUM,PORCINE/PF 5,000 UNIT/0.5 ML SYRINGE SQ SCH ×2 (08:27→19:51)
[2021-10-24] MEDS ORDERED: LIDOCAINE 1% INJ 10MG/ML (20 ML MDV) ONE ×2 (09:54→13:09)
[2021-10-24] MEDS ORDERED: MIDAZOLAM 2 MG/2 ML VIAL ONE (10:36)
[2021-10-24] MEDS ORDERED: .fentaNYL (PF) 50 MCG/ML 2 ML AMP ONE (10:36)
[2021-10-24] MEDS ORDERED: METOPROLOL TARTRATE 5 MG/5 ML VIAL IVP ONE (10:36)
[2021-10-24] MEDS ORDERED: PROTAMINE SULFATE 10 MG/ML 5 ML VIAL IV ONE (10:36)
[2021-10-24] MEDS ORDERED: IV FLUID CONTINUATION 1,000 ML IV ONE (10:36)
[2021-10-24] MEDS ORDERED: HEPARIN SODIUM,PORCINE 10,000 UNIT/ML 1 ML VIAL ONE (10:36)
[2021-10-24] MEDS ORDERED: ISOPROTERENOL 250 MCG/1.25 ML SYR IV ONE (10:36)
[2021-10-24 10:58] LABS: Glucose,Whole Blood 103 mg/dL (75-99)
[2021-10-24] MEDS ORDERED: LIDOCAINE 1% INJ 10MG/ML (20 ML MDV) SQ ONE ×3 (11:26→11:27)
[2021-10-24] MEDS ORDERED: HEPARIN SODIUM (1,000 UNIT/ML) 1,000 UNIT in SODIUM CHLORIDE 0.9% 1,000 ML IRRIGATION ONE (11:43)
[2021-10-24] MEDS ORDERED: HEPARIN SOD,PORK IN 0.45% NACL 25,000 UNIT in 0.45% NACL 1 250ML.BAG IV ONE (13:14)
[2021-10-24] MEDS ORDERED: SODIUM CHLORIDE 0.9% 1,000 ML IV ONE (14:00)
[2021-10-24] MEDS ORDERED: IOPAMIDOL-370 50ML BTL INJ ONE (15:59)
--- NOTE | 2021-10-24 16:40 | P.PN ---
Progress Note - Text Final impression after initial evaluation of the patient upon admission and after EP study Patient presented with recurrent episodes of ventricular tachycardia on the event monitor. He been experiencing recurrent episodes of palpitations He was given 1 dose of IV amiodarone the ER but this was stopped the next day in preparation for the EP study Coronary angiography was performed by Dr. Geiger He has normal coronary arteries His 2-D echo does not show any obvious structural abnormalities, normal LV and RV size and function At EP study, sustained monomorphic ventricular tachycardia, rapid, was induced on Isuprel with burst stimulation cycle length 200 ms We will able to do this consistently Contrary to the left bundle branch block morphology that was documented in the ER, we were not able to induce any left bundle branch block morphology VT despite testing on high dose Isuprel This VT was originating from the lateral base of the LV. QRS width was 172 ms. There was an initial delta wave-like configuration with a percentage of around 50% of the QRS Lead 1 had an rS pattern of QRS Successful VT ablation was performed and this tachycardia was rendered noninducible with RF ablation endocardially Following ablation, follow-up EP study on Isuprel could not induce the tachycardia that was just ablated However we will able to induce a second VT This was on burst stimulation at 190 ms, on Isuprel 5 micrograms infusion This winter the tachycardia had a left bundle branch block morphology with a transition in lead 3 and upright QRS is in to 3 aVF as well as upright in lead 1 Sustained VT status post a minute is spontaneously As testing continued this VT was induced once again at this time would be generator into ventricular fibrillation the cycle length of the VT was 244 beats a minute The morphology once again very similar. With a left bundle branch block morphology with a transition in lead 3 and upright QRS is in inferior leads and upright QRS is in lead 1 Reviewing his twelve-lead EKG of his clinical VT that was documented in the ER The morphology of that VT was also a left bundle branch block VT but the morphology of lead 1 was completely different The clinical VT that was documented in the ER had a deep negative QRS, QRS pattern that is fractionated at the onset/downslope The left bundle branch block VT induced in the EP lab had and upright QRS in lead 1 At EP study we were also able to induce nonsustained PSVT of different morphologies Impression Successful ablation of an LV base ventricular tachycardia The clinical VT that was documented in the ER was a left bundle branch block morphology that seemed to be originating from the septum of the right ventricle, 207 beats a minute The second inducible VT that degenerated into ventricular fibrillation also had a left bundle branch block morphology that seemed to be originating from the free wall of the RV Recurrent nonsustained VT was induced at EP study of different morphologies In view of the above findings and especially very fast second VT at 244 beats a minute that degenerated into ventricular fibrillation, I would recommend #1 a LifeVest for the next 4 months #2 cardiac MRI #3 sotalol therapy The patient will remain in the hospital for the next 2 days to monitor his QT interval and look for any further arrhythmias Further recommendations based on the results of cardiac MRI and likely follow-up EP evaluation
--- NOTE | 2021-10-24 16:55 | P.EPPROC ---
- EP Procedure Note Electrophysiology Procedure Note: Diagnosis Sustained monomorphic VT at greater than 207 beats a minute associated with presyncope Recurrent episodes Normal echo, normal coronary angiography VT has a left bundle branch block morphology, upright QRS is in the inferior leads and negatively oriented QRS is in lead 1 but with fractionation, Likely septal VT from the right ventricle Details of the procedure Patient was brought to the EP lab in a fasting state. Written informed consent was obtained prior to the procedure The right and left groins were prepped as per protocol and venous sheaths were placed. Plavix diagnostic catheter placed in the high right atrium, His bundle area, right ventricular apex, right ventricular septum and coronary sinus A detailed EP study was performed first in the baseline state and then on Isuprel Very mild sedation was given during the procedure It is quite difficult to induce his ventricular tachycardia Instead with ventricular stimulation nonsustained ventricular tachycardia of differing morphologies were induced However the patient did have frequent PVCs of 1 consistent morphology that seemed to be originating from the anterolateral base of the LV However the morphology of this PVC did not match the EKG there is documented in the ER, namely that of a left bundle branch block morphology Sinus recovery times at 600, 504 100 ms were 1485, 1346 and 1036 ms AV node Wenckebach block 520 ms No evidence for delta waves antegradely and retrogradely Burst ablation was performed from the right ventricle from 400 ms down to 260 ms. No sustained VT was induced Ventricular extra stimulation was performed at [address] trains up to double extrastimuli Nonsustained ventricular tachycardia of different morphologies was induced but sustained VT could not be induced Isuprel was started wide open initially then at 2 mics and later 5 mics Burst stimulation was performed down access stimulation was performed from the RV apex AV node Wenckebach block improved to 290 ms intermittent tarry sinus pacing was performed A brief episode of atrial fibrillation was induced on Isuprel Finally on 5 mics lisinopril and burst stimulation at 200 ms from the RV septum were able to induce sustained ventricular tachycardia This ventricular tachycardia at the exact morphology of the PVCs that were originating from the base of the left ventricle It is very different from the left bundle branch block morphology VT that is documented in the emergency room This VT could not be induced so far An 8-Vietnamese sheath was placed in the right femoral artery. Heparin was started. Hemodynamic monitoring was performed as well as sampling Intracardiac echo was performed The aortic root, aortic cusps and the left ventricle were mapped anatomically Electronic chronic mapping was then performed with pace mapping and activation mapping Both the PVCs and intermittently the ventricular tachycardia were mapped RF ablation was applied in the lateral aspect of the LV days at the earliest site of nocardial activation with a reasonable pace map The bipolar signal peak was about 50-60 ms earlier when the onset of the QRS and the unipolar signals were negative Successful ablation was performed. This tachycardia was rendered noninducible Only occasional PVCs and ventricular couplets Induced on high-dose Isuprel with burst ablation for right ventricular septum However and burst stimulation from the right ventricle septum was performed on 5 mics of Isuprel him a this time we induced a different, very fast VT at 244 beats a minute This was a left bundle branch block VT with upright QRS is in the inferior leads but with upright QRS is in lead 1 and therefore this was different than the clinical VT that rate been documented in the ER This sustained VT terminated with antitachycardia pacing Burst pacing was continued This VT was once again induced with a ventricular rate of 244 beats a minute and it degenerated into ventricular fibrillation Isuprel was stopped The patient became syncopal and as we were preparing defibrillated the patient, the ventricular fibrillation terminated spontaneously Thereafter IV metoprolol was administered to reverse Isuprel All sheaths and catheters were removed Hemostasis was assured. Vascade closure for venous access Annual pressure for femoral arterial access Heparin was reversed Result Inducible ventricular tachycardia originating from the LV days Successful ablation Inducible very fast ventricular tachycardia from the free wall/posterior wall of the RVOT that degenerated into ventricular fibrillation on Isuprel The clinical tachycardia that the patient came in with was originating from the septum of the right ventricular outflow tract Significant QRS fractionation was noted lead 1 Plan LifeVest Sotalol therapy Continue telemetry monitoring Cardiac MRI as an outpatient Procedures performed Comprehensive diagnostic EP study with induction of VT CS pacing and recording Isuprel therapy LV pacing Hemodynamic monitoring Intracardiac echo 3-D mapping RF ablation of ventricular tachycardia
[2021-10-24 18:05] LABS: African American GFR (CKD) >90 (>60 ml/min/1.73 sqM); Anion Gap 10 mmol/L; Blood Urea Nitrogen 13 mg/dL (9-20); Calcium 8.8 mg/dL (8.4-10.2); Carbon Dioxide 21 mmol/L (22-30); Chloride 106 mmol/L (98-107); Glucose 143 mg/dL (74-99); Magnesium 1.8 mg/dL (1.6-2.3); Non-African American GFR(CKD) >90 (>60 ml/min/1.73 sqM); Potassium 4.4 mmol/L (3.5-5.1); Sodium 137 mmol/L (137-145)
[2021-10-24] MEDS: ASPIRIN 325 MG TAB PO SCH (19:10)
[2021-10-24] MEDS: SOTALOL 80 MG TAB PO SCH (19:20)
--- NOTE | 2021-10-24 22:03 | P.PN ---
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 This time he felt dizzy for 10 seconds before he fell on the floor for a few seconds with no post syncope confusion. He denies chest pain or dyspnea or coughing. No diarrhea. No urinary complaints. No fever He smokes about 1 pack per day and he was consulted with and he agrees to the nicotine patch. No alcohol or illicit drugs On admission his heart rate was 70s to 80s. Systolic blood pressure 90s to 100. Afebrile. Labs reviewed including unremarkable CBC, INR, BMP, liver enzymes. Less than 0.012. coronavirus: Not detected Chest x-ray: No acute process EKG showing normal sinus rhythm at 72 with PAC. EKG showing normal sinus rhythm at 88 with PVCs and incomplete right bundle branch block. Third EKG showing wide QRS tachycardia at 207 with left bundle branch block patient was started on amiodarone drip in the emergency room Cardiology team consulted 10/22/2021 Patient awake with no dizziness or chest pain or other new complaints. He underwent cardiac cath today and it was nondiagnostic for any significant lesion. Patient vitals and labs are stable. He kept and Cardizem drip at 5 mg per hour with normal saline at 75 mL/h and aspirin 325 mg. Also he is on heparin and Pepcid. Cardiac team is planned for VT ablation on Wednesday10/23/2021 Patient lying in bed, with no specific symptoms. He is going for her diabetic ablation procedure tomorrow He still have some runs of V. tach but it is asymptomatic. Rest of vitals are stable. He remains on Cardizem drip, but normal saline was used stopped. Also he is on subcu heparin 10/24/2021 No specific complain todayt Patient is going for VT ablation procedure today with center sales and service associate team Objective - Vital Signs Vital signs: Vital Signs Temp 98.1 F 10/24/21 08:00 Pulse 64 10/24/21 08:00 Resp 14 10/24/21 08:00 BP 120/69 10/24/21 08:00 Pulse Ox 98 10/24/21 08:00 Intake & Output 10/23/21 10/24/21 10/24/21 18:59 06:59 18:59 Intake Total 1423.333 150 Balance 1423.333 150 Weight 74 kg Intake: Intake, IV Titration 103.333 150 Amount Diltiazem 125 mg In 103.333 Sodium Chloride 0.9% 100 ml @ 5 MG/HR 5 mls/hr IV .Q24H [facility] Rx#:[id number] Sodium Chloride 0.9% 1, 150 000 ml In Empty Bag 1 bag @ 1 ML/KG/HR 74.1 mls/hr IV .[id number] [facility] Rx#: [id number] Oral 1320 Other: # Voids 2 2 - Exam GENERAL: The patient is alert and oriented x3, not in any acute distress. Well developed, well nourished. HEENT: Pupils are round and equally reacting to light. EOMI. No scleral icterus. No conjunctival pallor. Normocephalic, atraumatic. No pharyngeal erythema. No thyromegaly. CARDIOVASCULAR: S1 and S2 present. No murmurs, rubs, or gallops. PULMONARY: Chest is clear to auscultation, no wheezing or crackles. ABDOMEN: Soft, nontender, nondistended, normoactive bowel sounds. No palpable organomegaly. MUSCULOSKELETAL: No joint swelling or deformity. EXTREMITIES: No cyanosis, clubbing, or pedal edema. NEUROLOGICAL: Gross neurological examination did not reveal any focal deficits. SKIN: No rashes. no petechiae. - Labs CBC & Chem 7: 10/22/21 06:55 10/24/21 17:18 Labs: Abnormal Lab Results - Last 24 Hours (Table) 10/24/21 Range/Units 10:54 POC Glucose (mg/dL) 103 H (75-99) mg/dL Assessment and Plan Assessment: Wide complex tachycardia, suspicious for V. tach History of jmlk-Ddpmpnjwt-Zptgk syndrome Nicotine dependence Plan: This is a pleasant 56 years old male who presents with wide complex tachycardia Currently he is on Cardizem drip Cardiology consult who plann for VT ablation on Wednesday Normal saline Nicotine patch Labs and medication were reviewed.. Continue same treatment. Continue with symptomatic treatment. Resume home medication. Monitor lytes and vitals. DVT and GI prophylaxis. Further recommendations depends on the clinical course of the patient DVT prophylaxis: Subcutaneous heparin GI Prophylaxis: Pepcid Prognosis is guarded
[2021-10-25] MEDS: SOTALOL 80 MG TAB PO SCH ×2 (08:41→20:48)
[2021-10-25] MEDS: HEPARIN SODIUM,PORCINE/PF 5,000 UNIT/0.5 ML SYRINGE SQ SCH ×2 (08:41→20:47)
[2021-10-25] MEDS: FAMOTIDINE 20 MG TAB PO SCH (08:41)
[2021-10-25] MEDS: ASPIRIN 325 MG TAB PO SCH (08:41)
[2021-10-25] MEDS: NICOTINE 21MG/24HR PATCH TRANSDERM SCH (08:42)
--- NOTE | 2021-10-25 12:30 | P.PN ---
Subjective Patient is doing well. No chest discomfort no dizziness or lightheadedness no palpitations He had a comfortable night His groins of healed well there is no hematoma soreness No JVD No lower extremity edema Circulation in the lower extremities is normal Abdomen is soft nontender He has no pleuritic chest discomfort Normal heart sounds no murmurs Breath sounds are clear Blood pressure 124/70 mmHg pulse rate in the 70s Impression Ventricular tachycardia with preserved LV systolic function and normal coronary arteries The admission ventricular tachycardia was consistent with a right ventricular outflow tract VT from the septum He was treated with IV amiodarone for 24 hours, this was then discontinued Coronary angiography was performed and this was normal He underwent a diagnostic EP study yesterday His clinical VT could not be induced despite a full EP stim protocol on and off Isuprel However sustained VT from the LV base was induced and this was successfully ablated This was rendered noninducible Follow-up testing revealed a third ventricular tachycardia from the posterior wall/free wall of the RVOT with rates close to 240 beats a minute This was a repetitive finding and the second time and it was induced he degenerated transiently into ventricular fibrillation, only with this particular VT He spontaneously converted to sinus rhythm TSH 4.7 free T4 1.34 free T3 4 0.3 Magnesium 1.8 Plan Add a very detailed discussion with him and his sister I will start him on sotalol 80 mg twice daily today His twelve-lead EKG today shows normal QT interval of about 440 ms on 40 mg twice daily of sotalol The dose will be increased to 80 mg twice daily Aspirin for one month post ablation Spironolactone 25 g by mouth daily to keep magnesium and potassium and normal range while on sotalol I will order a LifeVest for the next 4 months Outpatient assessment of cardiac structure and function look for any delayed enhancement No more amiodarone Consideration for repeat EP study after about 6 weeks to see if his clinical VT can be reinduced He does have an event monitor and may elect to keep this on for the next few weeks or if he will remain in the hospital to monitor his QT interval and for any clinical arrhythmias on sotalol BMP and magnesium tomorrow Objective - Vital Signs Vital signs: Vital Signs Temp 98.0 F 10/25/21 08:00 Pulse 70 10/25/21 08:00 Resp 18 10/25/21 08:00 BP 112/64 10/25/21 08:00 Pulse Ox 99 10/25/21 08:00 Intake & Output 10/24/21 10/25/21 10/25/21 18:59 06:59 18:59 Intake Total 1413 810 90 Output Total 625 400 Balance 788 410 90 Weight 73.8 kg Intake: IV 1413 Intake, IV Titration 450 Amount Sodium Chloride 0.9% 1, 450 000 ml @ 75 mls/hr IV . [id number] [facility] Rx#:[id number] Oral 360 90 Output: Urine 625 400 - Labs CBC & Chem 7: 10/22/21 06:55 10/24/21 17:18 Labs: Abnormal Lab Results - Last 24 Hours (Table) 10/24/21 Range/Units 17:18 Carbon Dioxide 21 L (22-30) mmol/L Glucose 143 H (74-99) mg/dL
--- NOTE | 2021-10-25 16:19 | P.PN ---
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 This time he felt dizzy for 10 seconds before he fell on the floor for a few seconds with no post syncope confusion. He denies chest pain or dyspnea or coughing. No diarrhea. No urinary complaints. No fever He smokes about 1 pack per day and he was consulted with and he agrees to the nicotine patch. No alcohol or illicit drugs On admission his heart rate was 70s to 80s. Systolic blood pressure 90s to 100. Afebrile. Labs reviewed including unremarkable CBC, INR, BMP, liver enzymes. Less than 0.012. coronavirus: Not detected Chest x-ray: No acute process EKG showing normal sinus rhythm at 72 with PAC. EKG showing normal sinus rhythm at 88 with PVCs and incomplete right bundle branch block. Third EKG showing wide QRS tachycardia at 207 with left bundle branch block patient was started on amiodarone drip in the emergency room Cardiology team consulted 10/22/2021 Patient awake with no dizziness or chest pain or other new complaints. He underwent cardiac cath today and it was nondiagnostic for any significant lesion. Patient vitals and labs are stable. He kept and Cardizem drip at 5 mg per hour with normal saline at 75 mL/h and aspirin 325 mg. Also he is on heparin and Pepcid. Cardiac team is planned for VT ablation on Wednesday10/23/2021 Patient lying in bed, with no specific symptoms. He is going for her diabetic ablation procedure tomorrow He still have some runs of V. tach but it is asymptomatic. Rest of vitals are stable. He remains on Cardizem drip, but normal saline was used stopped. Also he is on subcu heparin 10/24/2021 No specific complain todayt Patient is going for VT ablation procedure today with electronic scale assembler and tester team 10/25/2021 Patient today was sitting in bed comfortable, denies chest pain or dyspnea or any other complaints, if he can go home. Home is not medically ready for discharge and he agrees to stay. He is status post ablation of the LV base where as V. tach sustained at on 10/24.. His creatinine is stable at 0.6 and magnesium 1.8 He was started on sotalol 80 mg twice a day and aspirin 325 mg twice a day. Patient is followed closely by cardiology team Objective - Vital Signs Vital signs: Vital Signs Temp 98.0 F 10/25/21 08:00 Pulse 70 10/25/21 08:00 Resp 18 10/25/21 08:00 BP 112/64 10/25/21 08:00 Pulse Ox 99 10/25/21 08:00 Intake & Output 10/24/21 10/25/21 10/25/21 18:59 06:59 18:59 Intake Total 1413 810 90 Output Total 625 400 Balance 788 410 90 Weight 73.8 kg Intake: IV 1413 Intake, IV Titration 450 Amount Sodium Chloride 0.9% 1, 450 000 ml @ 75 mls/hr IV . [id number] [facility] Rx#:[id number] Oral 360 90 Output: Urine 625 400 - Exam GENERAL: The patient is alert and oriented x3, not in any acute distress. Well developed, well nourished. HEENT: Pupils are round and equally reacting to light. EOMI. No scleral icterus. No conjunctival pallor. Normocephalic, atraumatic. No pharyngeal erythema. No thyromegaly. CARDIOVASCULAR: S1 and S2 present. No murmurs, rubs, or gallops. PULMONARY: Chest is clear to auscultation, no wheezing or crackles. ABDOMEN: Soft, nontender, nondistended, normoactive bowel sounds. No palpable organomegaly. MUSCULOSKELETAL: No joint swelling or deformity. EXTREMITIES: No cyanosis, clubbing, or pedal edema. NEUROLOGICAL: Gross neurological examination did not reveal any focal deficits. SKIN: No rashes. no petechiae. - Labs CBC & Chem 7: 10/22/21 06:55 10/24/21 17:18 Labs: Abnormal Lab Results - Last 24 Hours (Table) 10/24/21 Range/Units 17:18 Carbon Dioxide 21 L (22-30) mmol/L Glucose 143 H (74-99) mg/dL Assessment and Plan Assessment: Status post ablation of left ventricular base V. tach History of xunp-Fosgnrnjq-Ozcae syndrome Nicotine dependence Plan: This is a pleasant 56 years old male who presents with wide complex tachycardia Continue with sotalol and aspirin per electronic scale assembler and tester's recommendation Keep monitoring of heart rate Labs and medication were reviewed.. Continue same treatment. Continue with symptomatic treatment. Resume home medication. Monitor lytes and vitals. DVT and GI prophylaxis. Further recommendations depends on the clinical course of the patient DVT prophylaxis: Subcutaneous heparin GI Prophylaxis: Pepcid
[2021-10-25] MEDS: DILTIAZEM 125 MG in SODIUM CHLORIDE 0.9% 100 ML IV SCH (17:27)
[2021-10-25] MEDS: SODIUM CHLORIDE 0.9% 1,000 ML IV SCH ×2 (17:28)
[2021-10-25] MEDS: SODIUM CHLORIDE 0.9% 1,000 ML in EMPTY BAG 1 BAG IV SCH (17:28)
[2021-10-26] MEDS: NICOTINE 21MG/24HR PATCH TRANSDERM SCH (08:44)
[2021-10-26] MEDS: SOTALOL 80 MG TAB PO SCH ×2 (08:44→20:25)
[2021-10-26] MEDS: HEPARIN SODIUM,PORCINE/PF 5,000 UNIT/0.5 ML SYRINGE SQ SCH ×2 (08:44→20:25)
[2021-10-26] MEDS: FAMOTIDINE 20 MG TAB PO SCH (08:44)
[2021-10-26] MEDS: ASPIRIN 325 MG TAB PO SCH (08:44)
[2021-10-26 08:46] LABS: African American GFR (CKD) >90 (>60 ml/min/1.73 sqM); Anion Gap 10 mmol/L; Blood Urea Nitrogen 16 mg/dL (9-20); Calcium 9.3 mg/dL (8.4-10.2); Carbon Dioxide 22 mmol/L (22-30); Chloride 105 mmol/L (98-107); Glucose 157 mg/dL (74-99); Magnesium 1.9 mg/dL (1.6-2.3); Non-African American GFR(CKD) >90 (>60 ml/min/1.73 sqM); Sodium 137 mmol/L (137-145)
--- NOTE | 2021-10-26 11:34 | P.PN ---
Subjective Patient is doing very well. No symptoms No dizziness no lightheadedness or palpitations no chest discomfort On examination afebrile 98.6F pulse rate in the 70s normal respirations Blood pressure 109/71 mmHg No JVD Normal heart sounds normal S1 normal S2 Normal breath sounds No edema The patient ambulated in the hallways briskly No exercise induced VT noted on sotalol 80 mg twice daily Heart rates went up into the high 90s Labs are reviewed sodium 137 potassium 4.0 creatinine 0.84 TSH 4.7, normal T4 and T3 line magnesium 1.9 Impression Sustained ventricular tachycardia with a heart rate of 207 beats a minute, RVOT septal. This was his presenting clinical arrhythmia This arrhythmia could not be induced at EP study He had received 24 hours of IV amiodarone Second ventricular tachycardia induced at EP study He had frequent PVCs in the ambient state of the exact same morphology Subsequently ventricular tachycardia with the exact same morphology as the PVC was also induced This was successfully mapped to the lateral basal LV and successfully ablated This was rendered noninducible Subsequent EP study resulted in induction of the third ventricular arrhythmia From the right ventricular protract but the posterior wall/free wall, not the septum This was a reproducible finding The ventricular rates for greater than 240 bpm and a degenerated into ventricular fibrillation The patient spontaneously converted back to sinus rhythm without receiving any defibrillation Normal LV function on echo Normal coronary angiogram Currently on sotalol 80 mg twice daily Absolute QT interval 450 ms Suggest LifeVest Continue sotalol 80 mg twice daily Add spironolactone and oral magnesium while on sotalol If he has no further arrhythmias overnight and tomorrow should be able to go home Outpatient reevaluation and advanced imaging Consideration for a follow-up EP study after about 4-6 weeks to see if his clinical VT from the septum of the RVOT can be induced Sotalol will be held 3 days prior No amiodarone Objective - Vital Signs Vital signs: Vital Signs Temp 98.6 F 10/26/21 08:00 Pulse 70 10/26/21 08:00 Resp 16 10/26/21 08:00 BP 102/64 10/26/21 08:00 Pulse Ox 98 10/26/21 08:00 Intake & Output 10/25/21 10/26/21 10/26/21 18:59 06:59 18:59 Intake Total 510 240 118 Balance 510 240 118 Intake: Oral 510 240 118 Other: # Voids 2 - Labs CBC & Chem 7: 10/22/21 06:55 10/26/21 08:07 Labs: Abnormal Lab Results - Last 24 Hours (Table) 10/26/21 Range/Units 08:07 Glucose 157 H (74-99) mg/dL
[2021-10-26] MEDS: MAGNESIUM OXIDE 400 MG TAB PO SCH (11:43)
[2021-10-26] MEDS: SPIRONOLACTONE 25 MG TAB PO SCH (11:44)
--- NOTE | 2021-10-26 18:16 | P.PN ---
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 This time he felt dizzy for 10 seconds before he fell on the floor for a few seconds with no post syncope confusion. He denies chest pain or dyspnea or coughing. No diarrhea. No urinary complaints. No fever He smokes about 1 pack per day and he was consulted with and he agrees to the nicotine patch. No alcohol or illicit drugs On admission his heart rate was 70s to 80s. Systolic blood pressure 90s to 100. Afebrile. Labs reviewed including unremarkable CBC, INR, BMP, liver enzymes. Less than 0.012. coronavirus: Not detected Chest x-ray: No acute process EKG showing normal sinus rhythm at 72 with PAC. EKG showing normal sinus rhythm at 88 with PVCs and incomplete right bundle branch block. Third EKG showing wide QRS tachycardia at 207 with left bundle branch block patient was started on amiodarone drip in the emergency room Cardiology team consulted 10/22/2021 Patient awake with no dizziness or chest pain or other new complaints. He underwent cardiac cath today and it was nondiagnostic for any significant lesion. Patient vitals and labs are stable. He kept and Cardizem drip at 5 mg per hour with normal saline at 75 mL/h and aspirin 325 mg. Also he is on heparin and Pepcid. Cardiac team is planned for VT ablation on Wednesday10/23/2021 Patient lying in bed, with no specific symptoms. He is going for her diabetic ablation procedure tomorrow He still have some runs of V. tach but it is asymptomatic. Rest of vitals are stable. He remains on Cardizem drip, but normal saline was used stopped. Also he is on subcu heparin 10/24/2021 No specific complain todayt Patient is going for VT ablation procedure today with galley stripper team 10/25/2021 Patient today was sitting in bed comfortable, denies chest pain or dyspnea or any other complaints, if he can go home. Home is not medically ready for discharge and he agrees to stay. He is status post ablation of the LV base where as V. tach sustained at on 10/24.. His creatinine is stable at 0.6 and magnesium 1.8 He was started on sotalol 80 mg twice a day and aspirin 325 mg twice a day. Patient is followed closely by cardiology team 10/26/2021 Patient also is symptomatic today. However he kept and select unit with close monitoring of heart rate for galley stripper team recommendation. Labs and vitals are stable He's on sotalol and aspirin, ondansetron added today. Patient also will need a life vest upon discharge and he is aware about it and agrees. Objective - Vital Signs Vital signs: Vital Signs Temp 98.6 F 10/26/21 08:00 Pulse 70 10/26/21 08:00 Resp 16 10/26/21 08:00 BP 102/64 10/26/21 08:00 Pulse Ox 98 10/26/21 08:00 Intake & Output 10/25/21 10/26/21 10/26/21 18:59 06:59 18:59 Intake Total 510 240 118 Balance 510 240 118 Intake: Oral 510 240 118 Other: # Voids 2 - Exam GENERAL: The patient is alert and oriented x3, not in any acute distress. Well developed, well nourished. HEENT: Pupils are round and equally reacting to light. EOMI. No scleral icterus. No conjunctival pallor. Normocephalic, atraumatic. No pharyngeal erythema. No thyromegaly. CARDIOVASCULAR: S1 and S2 present. No murmurs, rubs, or gallops. PULMONARY: Chest is clear to auscultation, no wheezing or crackles. ABDOMEN: Soft, nontender, nondistended, normoactive bowel sounds. No palpable organomegaly. MUSCULOSKELETAL: No joint swelling or deformity. EXTREMITIES: No cyanosis, clubbing, or pedal edema. NEUROLOGICAL: Gross neurological examination did not reveal any focal deficits. SKIN: No rashes. no petechiae. - Labs CBC & Chem 7: 10/22/21 06:55 10/26/21 08:07 Labs: Abnormal Lab Results - Last 24 Hours (Table) 10/26/21 Range/Units 08:07 Glucose 157 H (74-99) mg/dL Assessment and Plan Assessment: Status post ablation of left ventricular base V. tach History of klqw-Fdhtcpvdy-Axesa syndrome Nicotine dependence Plan: This is a pleasant 56 years old male who presents with wide complex tachycardia Continue with sotalol and aspirin per galley stripper's recommendation Keep monitoring of heart rate Needs life vest on discharge Labs and medication were reviewed.. Continue same treatment. Continue with symptomatic treatment. Resume home medication. Monitor lytes and vitals. DVT and GI prophylaxis. Further recommendations depends on the clinical course of the patient DVT prophylaxis: Subcutaneous heparin GI Prophylaxis: Pepcid
[2021-10-27] MEDS: SOTALOL 80 MG TAB PO SCH (08:50)
[2021-10-27] MEDS: FAMOTIDINE 20 MG TAB PO SCH (08:50)
[2021-10-27] MEDS: MAGNESIUM OXIDE 400 MG TAB PO SCH (08:50)
[2021-10-27] MEDS: SPIRONOLACTONE 25 MG TAB PO SCH (08:50)
[2021-10-27] MEDS: ASPIRIN 325 MG TAB PO SCH (08:50)
[2021-10-27] MEDS: NICOTINE 21MG/24HR PATCH TRANSDERM SCH (08:51)
[2021-10-27] MEDS: HEPARIN SODIUM,PORCINE/PF 5,000 UNIT/0.5 ML SYRINGE SQ SCH (08:51)
[2021-10-27 08:56] VITALS: PULSE 62; RESP 18
[2021-10-27 09:51] VITALS: BMI 25.1
--- NOTE | 2021-10-27 12:33 | P.PN ---
Subjective Progress Note Date: 10/27/21 HISTORY OF PRESENT ILLNESS: This is a 56 year old male who to underwent VT ablation yesterday with Dr. Walker. Patient examined this morning at the bedside. He denies chest pain or p ressure. Denies SOB. Telemetry reveals sinus mechanism. PHYSICAL EXAM: VITAL SIGNS: Reviewed. GENERAL: Well-developed in no acute distress. NECK: Supple. No JVD or thyromegaly LUNGS: Respirations even and unlabored. Lungs essentially clear to auscultation bilaterally. HEART: Regular rate and rhythm. S1 and S2 heard. EXTREMITIES: Normal range of motion. No clubbing or cyanosis. Peripheral pulses intact. No lower extremity edema. B/L groin soft with no hematoma. ASSESSMENT: Sustained ventricular tachycardia, status post ablation S/P cardiac cath revealing normal coronary arteries History of WPW Nicotine dependence PLAN: Continue current cardiac medications Patient to receive LifeVest today Anticipate discharge home this afternoon Nurse practitioner note has been reviewed by physician. Signing provider agrees with the documented findings, assessment, and plan of care. Objective - Vital Signs Vital signs: Vital Signs Temp 98.4 F 10/27/21 08:00 Pulse 62 10/27/21 08:00 Resp 18 10/27/21 08:00 BP 102/62 10/27/21 08:00 Pulse Ox 97 10/27/21 08:00 Intake & Output 10/26/21 10/27/21 10/27/21 18:59 06:59 18:59 Intake Total 236 240 Balance 236 240 Weight 72.8 kg 72.8 kg Intake: Oral 236 240 Other: # Voids 1 - Labs CBC & Chem 7: 10/22/21 06:55 10/26/21 08:07
[2021-10-27 15:24] VITALS: BP 165/88; TEMP 98.6
== END 2021-10-27 18:52 | disposition home or self-care (01) | DRG 274 ==
LOC: CATHEP 14:22 → 3SCARD 18:04 → OBSVTOIN 10-21 08:55
PROVIDERS: ADMIT Hospitalist; ATTEND Hospitalist
PROC: 4A023N7 Measurement of Cardiac Sampling and Pressure, Left Heart, Percutaneous Approach (ICD-10-PCS; 2021-10-22)
PROC: B2111ZZ Fluoroscopy of Multiple Coronary Arteries using Low Osmolar Contrast (ICD-10-PCS; 2021-10-22)
PROC: 4A023FZ Measurement of Cardiac Rhythm, Percutaneous Approach (ICD-10-PCS; 2021-10-24)
PROC: 4A0234Z Measurement of Cardiac Electrical Activity, Percutaneous Approach (ICD-10-PCS; 2021-10-24)
PROC: 02583ZZ Destruction of Conduction Mechanism, Percutaneous Approach (ICD-10-PCS; principal; 2021-10-24 11:00)
DX: I47.2 Ventricular tachycardia (principal); R55 Syncope and collapse; I49.01 Ventricular fibrillation; I45.2 Bifascicular block; F17.200 Nicotine dependence, unspecified, uncomplicated; F41.9 Anxiety disorder, unspecified; I25.10 Atherosclerotic heart disease of native coronary artery without angina pectoris; I45.6 Pre-excitation syndrome; Z20.822 Contact with and (suspected) exposure to COVID-19; W18.30XA Fall on same level, unspecified, initial encounter; Z79.82 Long term (current) use of aspirin
CPT/HCPCS: 71046; 80048; 80053; 83735; 84439; 84443; 84481; 84484; 85025; 85610; 85730; 87635; 93005; 93458; 93620; 93623; 93662; 99291

== ENCOUNTER 2023-10-15 10:41 | Emergency (ER) | payer BC, OTHER ==
--- NOTE | 2023-10-15 10:59 | ED ---
Eye Problem HPI - General Source: patient Mode of arrival: ambulatory Limitations: no limitations <Asya Tan - Last Filed: 10/15/23 10:57> <Valencia Griffin - Last Filed: 10/15/23 15:42> - General Chief complaint: Eye Problems Stated complaint: blurry vision Time Seen by Provider: 10/15/23 10:57 - History of Present Illness Initial comments: Patient is extremely coming in with chief complaint of bilateral decreased vision. Patient states he was spraying open last night and since then has been having this problem. Patient denies any fevers or pain. (Asya Tan) Quick note reviewed: This is a 58-year-old male with no significant past medical history who presents emergency Department with chief complaint of eye problems. Patient reports that he was spraying anti-mold spray at work for approximately 8 hours. He was wearing protective eye equipment. He reports bilateral decreased vision. He does wear corrective lenses. Denies any injury or trauma. (Valencia Griffin) - Related Data Home Medications Medication Instructions Recorded Confirmed PARoxetine [Paxil] 20 mg PO DAILY 10/15/23 10/15/23 Previous Rx's Medication Instructions Recorded Sotalol [Betapace] 80 mg PO BID #60 tab 10/27/21 Allergies Allergy/AdvReac Type Severity Reaction Status Date / Time No Known Allergies Allergy Verified 10/15/23 13:49 Review of Systems ROS Other: All systems not noted in ROS Statement are negative. <Asya Tan - Last Filed: 10/15/23 10:57> ROS Other: All systems not noted in ROS Statement are negative. <Valencia Griffin - Last Filed: 10/15/23 15:42> ROS Statement: Those systems with pertinent positive or pertinent negative responses have been documented in the HPI. Past Medical History Past Medical History: No Reported History Additional Past Medical History / Comment(s): wpw History of Any Multi-Drug Resistant Organisms: None Reported Past Surgical History: No Surgical Hx Reported Past Psychological History: No Psychological Hx Reported Smoking Status: Current every day smoker Past Alcohol Use History: Occasional Past Drug Use History: Marijuana <Asya Tan - Last Filed: 10/15/23 10:57> General Exam Limitations: no limitations <Asya Tan - Last Filed: 10/15/23 10:57> <Valencia Griffin - Last Filed: 10/15/23 15:42> - General Exam Comments Initial Comments: Visual Physical Exam Vital signs reviewed General: Well-appearing, nontoxic, no acute distress. Head: Normocephalic, atraumatic Eyes: PERRLA, EOMI ENT: Airway patent Chest: Nonlabored breathing Skin: No visual rash, normal skin tone Neuro: Alert and oriented 3 Musculoskeletal: No gross abnormalities (Asya Tan) General: Alert, in no acute distress Head: atraumatic normocephalic. Eyes PERRL, EOMI intact, mucous membranes moist Respiratory: Lungs clear to auscultation bilaterally Cardiovascular: Rate regular rhythm Abdominal: Soft without guarding or rebound Extremities: Normal inspection with full range of motion and normal capillary refill Neuroogic: alert and oriented 3, CN II-XII intact, able to ambulate with steady gait Skin: warm dry and intact with normal color Right eye IOP 20, Left eye IOP 17 No fluorescein uptake on exam (Valencia Griffin) Course Vital Signs 10/15/23 10/15/23 10:47 14:14 Temperature 98.1 F 98.2 F Pulse Rate 79 70 Respiratory 20 16 Rate Blood Pressure 136/93 111/70 O2 Sat by Pulse 99 97 Oximetry Medical Decision Making <Asya Tan - Last Filed: 10/15/23 10:57> <Valencia Griffin - Last Filed: 10/15/23 15:42> - Medical Decision Making I performed the quick note portion of the exam. Electronically signed by Asya Tan PA-C (Asya Tan) Was pt. sent in by a medical professional or institution ([facility], MANAGER FACILITY, urgent care, hospital, or alf...) When possible be specific @ -[No] Did you speak to anyone other than the patient for history (EMS, parent, family, police, friend...)? What history was obtained from this source @ -[No] Did you review nursing and triage notes (agree or disagree)? Why? @ -[I reviewed and agree with nursing and triage notes] Were old charts reviewed (outside hosp., previous admission, EMS record, old EKG, old radiological studies, urgent care reports/EKG's, alf records)? Report findings @ -[No old charts were reviewed] Differential Diagnosis (chest pain, altered mental status, abdominal pain women, abdominal pain men, vaginal bleeding, weakness, fever, dyspnea, syncope, headache, dizziness, GI bleed, back pain, seizure, CVA, palpatations, mental health, musculoskeletal)? @ -[not applicable] EKG interpreted by me (3pts min.). @ -[As above] X-rays interpreted by me (1pt min.). @ -[None done] CT interpreted by me (1pt min.). @ -[None done] U/S interpreted by me (1pt. min.). @ -[None done] What testing was considered but not performed or refused? (CT, X-rays, U/S, labs)? Why? @ -[None] What meds were considered but not given or refused? Why? @ -[None] Did you discuss the management of the patient with other professionals (professionals i.e. , PA, MANAGER FACILITY, lab, RT, psych nurse, manager social media, lawyer real estate, teacher, chief growth officer, medical case manager)? Give summary @ -[No] Was smoking cessation discussed for >3mins.? @ -[No] Was critical care preformed (if so, how long)? @ -[No] Were there social determinants of health that impacted care today? How? (Homelessness, low income, unemployed, alcoholism, drug addiction, transportation, low edu. Level, literacy, decrease access to med. care, snf, rehab)? @ -[No] Was there de-escalation of care discussed even if they declined (Discuss DNR or withdrawal of care, Hospice)? DNR status @ -[No] What co-morbidities impacted this encounter? (DM, HTN, Smoking, COPD, CAD, Cancer, CVA, ARF, Chemo, Hep., AIDS, mental health diagnosis, sleep apnea, morbid obesity)? @ -[None] Was patient admitted / discharged? Hospital course, mention meds given and route, prescriptions, significant lab abnormalities, going to OR and other pertinent info. @ -Discharged. This is a 58-year-old male who presents to the emergency department with eye problem. Patient a history physical exam performed. There is no fluorescein uptake noted upon exam. Intraocular eye pressures normal. Visual acuity within normal limits. Patient had bilateral eyes flushed with 2 L of normal saline with symptomatic improvement. Return precautions discussed at length. Patient discharged in stable condition. Case discussed with SO Kerr who agrees with plan of care Undiagnosed new problem with uncertain prognosis? @ -[No] Drug Therapy requiring intensive monitoring for toxicity (Heparin, Nitro, Insulin, Cardizem)? @ -[No] Were any procedures done? @ -[No] Diagnosis/symptom? @ -Eye problem - Chemical Exposure Acute, or Chronic, or Acute on Chronic? @ -Acute Uncomplicated (without systemic symptoms) or Complicated (systemic symptoms)? @ -Uncomplicated Side effects of treatment? @ -[No] Exacerbation, Progression, or Severe Exacerbation? @ -[No] Poses a threat to life or bodily function? How? (Chest pain, [place], [place], pneumonia, PE, COPD, DKA, ARF, appy, cholecystitis, CVA, Diverticulitis, Homicidal, Suicidal, threat to staff... and all critical care pts) @ -Low likelihood (Valencia Griffin) Disposition <Asya Tan - Last Filed: 10/15/23 10:57> Is patient prescribed a controlled substance at d/c from ED?: No Time of Disposition: 14:09 <Valencia Griffin - Last Filed: 10/15/23 15:42> Clinical Impression: Eye problem, Chemical exposure of eye Disposition: HOME SELF-CARE Condition: Stable Instructions (If sedation given, give patient instructions): Eye Wash (Into the eye) Additional Instructions: Please monitor your symptoms closely pLease return to the ER second vision loss or intense headache develop Referrals: None,Stated [Primary Care Provider] - 1-2 days
[2023-10-15] MEDS ORDERED: SODIUM CHLORIDE 0.9% 2,000 ML IV ONE (11:55)
[2023-10-15] MEDS ORDERED: PROPARACAINE 0.5% OPHTH DROPS 15 ML BTL LEFT EYE STA (13:50)
[2023-10-15] MEDS ORDERED: PROPARACAINE 0.5% OPHTH DROPS 15 ML BTL RIGHT EYE STA (13:50)
[2023-10-15] MEDS: FLUORESCEIN STRIPS 1 MG STRIP BOTH EYES ONE ×2 (13:55→13:56)
[2023-10-15 14:28] VITALS: BP 111/70; PULSE 70; RESP 16; TEMP 98.2
== END 2023-10-15 14:15 | disposition home or self-care (01) ==
LOC: EC 10:41
DX: H57.9 Unspecified disorder of eye and adnexa (principal); Z77.098 Contact with and (suspected) exposure to other hazardous, chiefly nonmedicinal, chemicals; F17.200 Nicotine dependence, unspecified, uncomplicated; F12.90 Cannabis use, unspecified, uncomplicated
CPT/HCPCS: 96360; 96361; 99283

== ENCOUNTER 2023-11-04 23:32 | Emergency (ER) | payer BC ==
[2023-11-04 23:54] VITALS: TEMP 99.4
[2023-11-05] MEDS ORDERED: BENZONATATE 100 MG CAP PO STA (01:58)
--- NOTE | 2023-11-05 02:00 | ED ---
General Adult HPI - General Stated complaint: Possible covid Time Seen by Provider: 11/05/23 00:52 Source: patient, RN notes reviewed Mode of arrival: ambulatory Limitations: no limitations - History of Present Illness Initial comments: 58-year-old male with no significant past medical history presents the emergency department with a chief complaint of possible Covid. Patient reports that he has had headache, nasal congestion, chills, nonproductive cough for the last 2 days. He does report that he has had recent Covid exposures at work. He denies any known shortness of breath, dyspnea, productive cough, fatigue. He is up-to-date on his vaccines. Denies History of asthma or COPD. - Related Data Home Medications Medication Instructions Recorded Confirmed PARoxetine [Paxil] 20 mg PO DAILY 10/15/23 10/15/23 Previous Rx's Medication Instructions Recorded Sotalol [Betapace] 80 mg PO BID #60 tab 10/27/21 Benzonatate [Tessalon Perles] 100 mg PO TID PRN #30 capsule 11/05/23 Allergies Allergy/AdvReac Type Severity Reaction Status Date / Time No Known Allergies Allergy Verified 11/04/23 23:36 Review of Systems ROS Statement: Those systems with pertinent positive or pertinent negative responses have been documented in the HPI. ROS Other: All systems not noted in ROS Statement are negative. Past Medical History Past Medical History: No Reported History Additional Past Medical History / Comment(s): wpw History of Any Multi-Drug Resistant Organisms: None Reported Past Surgical History: No Surgical Hx Reported Past Psychological History: No Psychological Hx Reported Smoking Status: Former smoker Past Alcohol Use History: Occasional Past Drug Use History: Marijuana General Exam - General Exam Comments Initial Comments: General: Alert, in no acute distress Head: atraumatic normocephalic. Eyes PERRL, EOMI intact, mucous membranes moist Respiratory: Lungs clear to auscultation bilaterally Cardiovascular: Heart rate regular rate and rhythm Abdominal: Soft without guarding or rebound Extremities: Normal inspection with full range of motion and normal capillary refill Neuroogic: alert and oriented 3, CN II-XII intact, able to ambulate with steady gait Skin: warm dry and intact with normal color Limitations: no limitations Course Vital Signs 11/04/23 11/05/23 23:35 01:55 Temperature 99.4 F Pulse Rate 71 75 Respiratory 18 20 Rate Blood Pressure 123/73 118/75 O2 Sat by Pulse 98 96 Oximetry Medical Decision Making - Medical Decision Making Was pt. sent in by a medical professional or institution ([facility] Howard, FIRE CONTROL SYSTEM INSTALLER, urgent care, hospital, or fci...) When possible be specific @ -[No] Did you speak to anyone other than the patient for history (EMS, parent, family, police, friend...)? What history was obtained from this source @ -[No] Did you review nursing and triage notes (agree or disagree)? Why? @ -[I reviewed and agree with nursing and triage notes] Were old charts reviewed (outside hosp., previous admission, EMS record, old EKG, old radiological studies, urgent care reports/EKG's, fci records)? Report findings @ -[No old charts were reviewed] Differential Diagnosis (chest pain, altered mental status, abdominal pain women, abdominal pain men, vaginal bleeding, weakness, fever, dyspnea, syncope, headache, dizziness, GI bleed, back pain, seizure, CVA, palpatations, mental health, musculoskeletal)? @ -[not applicable] EKG interpreted by me (3pts min.). @ -[As above] X-rays interpreted by me (1pt min.). @ -[None done] CT interpreted by me (1pt min.). @ -[None done] U/S interpreted by me (1pt. min.). @ -[None done] What testing was considered but not performed or refused? (CT, X-rays, U/S, labs)? Why? @ -[None] What meds were considered but not given or refused? Why? @ -[None] Did you discuss the management of the patient with other professionals (professionals i.e. [facility] Howard, FIRE CONTROL SYSTEM INSTALLER, lab, RT, psych nurse, health social work professor, independent freight agent, teacher, targeting acquisition officer, top case assembler)? Give summary @ -[No] Was smoking cessation discussed for >3mins.? @ -[No] Was critical care preformed (if so, how long)? @ -[No] Were there social determinants of health that impacted care today? How? (Homelessness, low income, unemployed, alcoholism, drug addiction, transportation, low edu. Level, literacy, decrease access to med. care, skilled nursing, rehab)? @ -[No] Was there de-escalation of care discussed even if they declined (Discuss DNR or withdrawal of care, Hospice)? DNR status @ -[No] What co-morbidities impacted this encounter? (DM, HTN, Smoking, COPD, CAD, Cancer, CVA, ARF, Chemo, Hep., AIDS, mental health diagnosis, sleep apnea, morbid obesity)? @ -[None] Was patient admitted / discharged? Hospital course, mention meds given and route , prescriptions, significant lab abnormalities, going to OR and other pertinent info. @ Discharged. This is a 58-year-old male who presents the emergency department with cough. Patient had a history and physical exam performed. Vital signs are stable. Patient afebrile. Heart rate regular rate and rhythm, lungs clear to auscultation bilaterally abdomen soft and nontender. Patient is Covid positive. I discussed the results in detail the patient verbalized understanding all questions addressed. He is agreeable with the plan for discharge home. Case is discussed with , [facility] who agrees with POC Undiagnosed new problem with uncertain prognosis? @ -[No] Drug Therapy requiring intensive monitoring for toxicity (Heparin, Nitro, Insulin, Cardizem)? @ -[No] Were any procedures done? @ -[No] Diagnosis/symptom? @ Cough - Covid19 Acute, or Chronic, or Acute on Chronic? @ -Acute Uncomplicated (without systemic symptoms) or Complicated (systemic symptoms)? @ -Uncomplicated Side effects of treatment? @ -[No] Exacerbation, Progression, or Severe Exacerbation? @ -[No] Poses a threat to life or bodily function? How? (Chest pain, [place], [place], pneumonia, PE, COPD, DKA, ARF, appy, cholecystitis, CVA, Diverticulitis, Homicidal, Suici bradly, threat to staff... and all critical care pts) @ -Low likelihood - Lab Data Lab Results 11/04/23 Range/Units 23:38 Influenza Type A (PCR) Not Detected (Not Detectd) Influenza Type B (PCR) Not Detected (Not Detectd) RSV (PCR) Not Detected (Not Detectd) SARS-CoV-2 (PCR) Detected A (Not Detectd) Disposition Clinical Impression: COVID-19, Cough Disposition: HOME SELF-CARE Condition: Stable Instructions (If sedation given, give patient instructions): Upper Respiratory Infection (ED) Prescriptions: Benzonatate [Tessalon Perles] 100 mg PO TID PRN #30 capsule PRN Reason: Cough Is patient prescribed a controlled substance at d/c from ED?: No Referrals: Isabela James DO [Primary Care Provider] - 1-2 days Time of Disposition: 01:59
[2023-11-05 02:13] VITALS: BP 118/75; PULSE 75; RESP 20
== END 2023-11-05 02:12 | disposition home or self-care (01) ==
LOC: EC 23:32
DX: U07.1 COVID-19 (principal); F12.90 Cannabis use, unspecified, uncomplicated; Z87.891 Personal history of nicotine dependence
CPT/HCPCS: 87636; 99284

== ENCOUNTER 2024-12-04 09:33 | Emergency (ER) | payer BC, OTHER ==
--- NOTE | 2024-12-04 09:44 | ED ---
URI HPI - General Stated Complaint: Cough Time Seen by Provider: 12/04/24 09:43 Source: patient, RN notes reviewed Mode of arrival: ambulatory Limitations: no limitations - History of Present Illness Initial Comments: 59-year-old male presented the ER for evaluation of cough, congestion and diarrhea. Patient reports for the past 3 days he has felt unwell. On Wednesday he started to experience cough and congestion and thought it was COVID as his son had recent similar symptoms. Patient states on Wednesday he has been having persistent diarrhea along with abdominal cramping. He denies any nausea or vomiting. No fevers. No urinary complaints. No hematochezia or melena. Patient denies any dizziness, lightheadedness, chest pain, shortness of breath or peripheral edema. - Related Data Home Medications Medication Instructions Recorded Confirmed PARoxetine [Paxil] 20 mg PO DAILY 10/15/23 10/15/23 Previous Rx's Medication Instructions Recorded Sotalol [Betapace] 80 mg PO BID #60 tab 10/27/21 Benzonatate [Tessalon Perles] 100 mg PO TID PRN #30 capsule 11/05/23 Allergies Allergy/AdvReac Type Severity Reaction Status Date / Time No Known Allergies Allergy Verified 12/04/24 10:18 Review of Systems ROS Statement: Those systems with pertinent positive or pertinent negative responses have been documented in the HPI. ROS Other: All systems not noted in ROS Statement are negative. Past Medical History Past Medical History: No Reported History Additional Past Medical History / Comment(s): wpw History of Any Multi-Drug Resistant Organisms: None Reported Past Surgical History: No Surgical Hx Reported Past Psychological History: No Psychological Hx Reported Smoking Status: Former smoker Past Alcohol Use History: Occasional Past Drug Use History: Marijuana General Exam - General Exam Comments Initial Comments: Visual Physical Exam Vital signs reviewed General: Well-appearing, nontoxic, no acute distress. Head: Normocephalic, atraumatic Eyes: PERRLA, EOMI ENT: Airway patent Chest: Nonlabored breathing Skin: No visual rash, normal skin tone Neuro: Alert and oriented 3 Musculoskeletal: No gross abnormalities General appearance: alert, in no apparent distress Respiratory exam: Present: normal lung sounds bilaterally. Absent: respiratory distress, wheezes, rales, rhonchi, stridor Cardiovascular Exam: Present: regular rate, normal rhythm, normal heart sounds. Absent: systolic murmur, diastolic murmur, rubs, gallop, clicks GI/Abdominal exam: Present: soft, tenderness (LUQ), normal bowel sounds Neurological exam: Present: alert, oriented X3, CN II-XII intact Skin exam: Present: warm, dry, intact, normal color. Absent: rash Course Vital Signs 12/04/24 10:16 Temperature 97.8 F Pulse Rate 93 Respiratory 22 Rate Blood Pressure 130/79 O2 Sat by Pulse 97 Oximetry Medical Decision Making - Medical Decision Making I performed the quick note portion of this chart. Electronically signed by Biju Tan PA-C Was pt. sent in by a medical professional or institution ([facility] Howard, STRATEGIC SOURCING CONSULTANT, urgent care, hospital, or shelter...) When possible be specific @ -No Did you speak to anyone other than the patient for history (EMS, parent, family, police, friend...)? What history was obtained from this source @ -No Did you review nursing and triage notes (agree or disagree)? Why? @ -I reviewed and agree with nursing and triage notes Were old charts reviewed (outside hosp., previous admission, EMS record, old EKG, old radiological studies, urgent care reports/EKG's, shelter records)? Report findings @ -No old charts were reviewed Differential Diagnosis (chest pain, altered mental status, abdominal pain women, abdominal pain men, vaginal bleeding, weakness, fever, dyspnea, syncope, headache, dizziness, GI bleed, back pain, seizure, CVA, palpatations, mental health, musculoskeletal)? @ -COVID, RSV, influenza, viral sinusitis, pneumonia, strep pharyngitis, this list is not meant to be all-inclusive EKG interpreted by me (3pts min.). @ -None done X-rays interpreted by me (1pt min.). @ -CXR interpreted me negative for focal consolidations, pneumothorax or pleural effusions CT interpreted by me (1pt min.). @ -None done U/S interpreted by me (1pt. min.). @ -None done What testing was considered but not performed or refused? (CT, X-rays, U/S, labs)? Why? @ -None What meds were considered but not given or refused? Why? @ -None Did you discuss the management of the patient with other professionals (professionals i.e. , PA, STRATEGIC SOURCING CONSULTANT, lab, RT, psych nurse, hospital social worker, road driver, teacher, loan workout officer, disease case manager rn)? Give summary @ -No Was smoking cessation discussed for >3mins.? @ -No Was critical care preformed (if so, how long)? @ -No Were there social determinants of health that impacted care today? How? (Homelessness, low income, unemployed, alcoholism, drug addiction, transportation, low edu. Level, literacy, decrease access to med. care, snf, rehab)? @ -No Was there de-escalation of care discussed even if they declined (Discuss DNR or withdrawal of care, Hospice)? DNR status @ -No What co-morbidities impacted this encounter? (DM, HTN, Smoking, COPD, CAD, Cancer, CVA, ARF, Chemo, Hep., AIDS, mental health diagnosis, sleep apnea, morbid obesity)? @ -None Was patient admitted / discharged? Hospital course, mention meds given and route, prescriptions, significant lab abnormalities, going to OR and other pertinent info. @ -59-year-old male presented to to the ER for COVID testing. Patient reporting cough, congestion, diarrhea and abdominal cramping. History and physical exam completed. Vitals within normal limits. Viral swabs negative. Chest x-ray negative. Patient eloped from emergency department prior to laboratory studies being drawn for evaluation of diarrhea and abdominal cramping. Patient left against medical advice. Undiagnosed new problem with uncertain prognosis? @ -No Drug Therapy requiring intensive monitoring for toxicity (Heparin, Nitro, Insulin, Cardizem)? @ -No Were any procedures done? @ -No Diagnosis/symptom? @ -AMA Acute, or Chronic, or Acute on Chronic? @ -N/A Uncomplicated (without systemic symptoms) or Complicated (systemic symptoms)? @ -N/A Side effects of treatment? @ -No Exacerbation, Progression, or Severe Exacerbation? @ -No Poses a threat to life or bodily function? How? (Chest pain, USA, NM, pneumonia, PE, COPD, DKA, ARF, appy, cholecystitis, CVA, Diverticulitis, Homicidal, Suicidal, threat to staff... and all critical care pts) @ -No - Lab Data Lab Results 12/04/24 Range/Units 10:19 Influenza Type A (PCR) Not Detected (Not Detectd) Influenza Type B (PCR) Not Detected (Not Detectd) RSV (PCR) Not Detected (Not Detectd) SARS-CoV-2 (PCR) Not Detected (Not Detectd) - Radiology Data Radiology results: report reviewed, image reviewed Disposition Clinical Impression: Acute viral sinusitis Disposition: HOME SELF-CARE Condition: Stable Is patient prescribed a controlled substance at d/c from ED?: No Referrals: [facility] [NON-STAFF] - 1-2 days (Contact to become established with a primary care physician.) None,Stated [Primary Care Provider] - 1-2 days Forms: Area PCPs Time of Disposition: 14:10
[2024-12-04 10:18] VITALS: BP 130/79; PULSE 93; RESP 22; TEMP 97.8
[2024-12-04] MEDS ORDERED: ACETAMINOPHEN TAB 325 MG TAB PO STA (10:18)
[2024-12-04 11:12] LABS: Influenza A Not Detected (Not Detectd); Influenza B Not Detected (Not Detectd); RSV Not Detected (Not Detectd)
--- NOTE | 2024-12-04 11:18 | XR ---
EXAMINATION TYPE: XR chest 2V DATE OF EXAM: 12/04/2024 CLINICAL HISTORY: Cough TECHNIQUE: Frontal and lateral views of the chest are obtained. COMPARISON: Chest x-ray October 20, 2021 FINDINGS: There is some chronic parenchymal change bilaterally redemonstrated without suspicious new focal air space opacity, pleural effusion, or pneumothorax seen. The cardiac silhouette size remain s within normal limits. The osseous structures are intact. IMPRESSION: Chronic changes without acute pulmonary process. [facility], , 12/04/2024 11:15 AM
== END 2024-12-04 15:58 | disposition home or self-care (01) ==
LOC: EC 09:33
DX: J01.90 Acute sinusitis, unspecified (principal); B97.89 Other viral agents as the cause of diseases classified elsewhere; Z53.29 Procedure and treatment not carried out because of patient's decision for other reasons; R10.12 Left upper quadrant pain; Z87.891 Personal history of nicotine dependence
CPT/HCPCS: 71046; 87636; 99283